=== PATIENT | male | born 1935 | race African-American/Black ===

== ENCOUNTER 2018-10-16 14:51 | Inpatient (IN) | payer MEDICARE, MEDICAID ==
--- NOTE | 2018-10-16 16:26 | ULT ---
EXAM: Right lower extremity venous duplex ultrasound with color and spectral Doppler imaging: HISTORY: Lower extremity edema. COMPARISON: None FINDINGS: Exam performed from the groin to the ankle including the visualized greater saphenous, common femoral , superficial femoral, profunda femoral, popliteal, trifurcation, and very poorly visualized posterior tibial veins. There is phasic flow with normal compressibility and normal augmentation at all visualized levels. No evidence for intraluminal thrombus. Posterior tibial veins and arteries are poorly seen. IMPRESSION:: No evidence for deep venous thrombosis. Incomplete visualization of the posterior tibial veins.
[2018-10-16 17:11] LABS: CKMB 2.1 ng/mL (0-6.6)
[2018-10-16] MEDS ORDERED: Magnesium 2 GM/50 ML BAG (IN WATER) ONE (17:15)
[2018-10-16] MEDS ORDERED: Calcium Carbonate 500 MG ChewTAB PO PRN (17:43)
[2018-10-16] MEDS ORDERED: Ondansetron PF 4 MG/2 ML Vial IVP PRN (17:43)
[2018-10-16] MEDS ORDERED: Ondansetron ODT 4 MG TAB PO PRN (17:43)
[2018-10-16] MEDS ORDERED: Acetaminophen 325 MG TAB PO PRN (17:43)
--- NOTE | 2018-10-16 19:00 | CON ---
DATE OF CONSULTATION: 10/16/2018 REASON FOR CONSULTATION: Atrial fibrillation with RVR. HISTORY OF PRESENT ILLNESS: Mr. Davis is a very pleasant 82-year-old gentleman, who comes to the hospital for altered mentation. called [phone] as he noticed that he was not responding adequately. Upon arrival, he was alert and oriented x2, and he was found to be in atrial fibrillation RVR, so he was started on Cardizem drip, this was in [place]. He was sent over to [facility] and Cardiology is being consulted for this. Mr. Davis has a significant history of cardiomyopathy. He had an EF of about 30% to 35% in 2013. He never had a heart catheterization as he had elevated creatinine at that time, which was in 2013 and he never followed up in the office. The last time I saw him was in 2013 during his admission in May and have not seen him since. On my evaluation, he is still little bit confused. He denies any chest pain, tightness, or pressure. He tells me that his breathing is similar to what it always is, but again I am not sure how confused he may be. Currently, he is able to who he is, but he is unable to tell me year or where he is. PAST MEDICAL HISTORY: 1. Dilated cardiomyopathy, last EF 30% to 35% in 2013. 2. Chronic kidney disease stage 4. 3. Hypertension. 4. Sensorineural deafness. SURGICAL HISTORY: 1. Hernia repair. 2. Cataract in the right eye repair. SOCIAL HISTORY: No alcohol, tobacco, or drugs. OUTPATIENT MEDICATIONS: Reviewed on ; 1. Carvedilol 3.125 b.i.d. 2. Atorvastatin 40 mg at bedtime. 3. Aspirin 325 a day. ALLERGIES: NO KNOWN DRUG ALLERGIES. FAMILY HISTORY: Early coronary artery disease, stroke, and malignancy in family members. REVIEW OF SYSTEMS: A 10-point review of systems was done and was found to be negative unless stated in the history of present illness, however, he is confused and this is not accurate. PHYSICAL EXAMINATION: VITAL SIGNS: Temperature 98.2, pulse 60, respiratory rate 18, saturating 98% on 2 L nasal cannula. GENERAL: Awake, alert, and oriented to person only, in no distress. HEENT: Normocephalic and atraumatic. NECK: Supple. LUNGS: Mild crackles at bases. CARDIOVASCULAR: S1 and S2. No S3 or S4. No murmurs. ABDOMEN: Soft. There is a grade 2/6 systolic murmur at the upper sternal border. ABDOMEN: Soft. Positive bowel sounds. EXTREMITIES: 1+ edema. SKIN: Warm and dry. LABORATORY DATA: Laboratory work was reviewed. CBC with a white count of 5, hemoglobin 12, hematocrit 39, platelet count of 145. Chemistries with sodium 134, potassium 3.7, creatinine 1.94 with GFR of 40, glucose of 111, calcium is low at 7.7, total bilirubin is 1.3. Troponin is 0.05, 0.05. BNP was 318. TSH Telemetry was reviewed. Chest x-ray showed bibasilar opacities suggesting bilateral pulmonary parenchymal opacities and pleural effusions. Pulmonary edema more than infectious pneumonitis. ASSESSMENT AND PLAN: 1. Atrial fibrillation with RVR. Rate controlled on current diltiazem drip. Heart rate in the 60s. 2. Acute on chronic systolic heart failure. Most likely he has a little bit of congestive heart failure exacerbation with his atrial fibrillation. 3. Hypertension. 4. Noncompliance. PLAN: 1. Agree with continued diltiazem drip for now, probably transition to p.o. in the next few days. 2. would be just up titrating his Coreg rather than adding a calcium channel binu. 3. His CHADS-VASc score is 4 with LV dysfunction, hypertension, and age above 75, so he would be a candidate for full anticoagulation, however, at this point I would have to talk with his family member to see if he is not too much of a fall risk, which I think he may be right now, it is prohibitive given his altered mentation. 4. We will repeat echocardiogram to see what his LV function is at this point. Thank you for letting me to participate in the care of your patient. We will follow. Job ID: [id number]
[2018-10-16] MEDS: Senokot S 8.6-50 MG TAB PO SCH (21:00)
[2018-10-16] MEDS: Carvedilol 3.125 MG TAB PO SCH (21:00)
--- NOTE | 2018-10-16 23:02 | HP ---
PRIMARY CARE PHYSICIAN: Adonis Mandel MD CHIEF COMPLAINT: Altered mentation. HISTORY OF PRESENT ILLNESS: The patient is an 82-year-old male with congestive heart failure, ejection fraction 30% in the past, and hypertension, presented to the emergency room by EMS with altered mentation. Please note that the patient is a very poor historian and no information is available from the patient. I attempted to call all the phone numbers on his face sheet with no answer. History obtained from the ER record as well as records from Dr. Mandel's office. The patient had altered mentation; for which, he was sent to the emergency room. It is unclear whether he had significant shortness of breath. He was found to have atrial fibrillation with rapid ventricular response at [facility] and was started on Cardizem drip. His chest x-ray showed pulmonary vascular congestion. He also received aspirin, Lovenox, and IV fluid in the emergency room. Initial vital signs at [facility] show temperature 97.9, respirations 15, pulse of 118 with a blood pressure of 130/92 with O2 saturation of 94% on room air. He was transferred to this facility for hospital admission. Again, no information is available from the patient. PAST MEDICAL HISTORY: 1. Hypertension. 2. Chronic hearing loss. 3. Chronic systolic heart failure, ejection fraction 30% in the past. 4. Dyslipidemia. 5. Dementia. 6. CKD. 7. Chronic hyponatremia. PAST SURGICAL HISTORY: Inguinal hernia repair. ALLERGIES: NO KNOWN DRUG ALLERGIES. CURRENT HOME MEDICATIONS: From his PCP's office: 1. Carvedilol 6.25 mg b.i.d. 2. Aspirin 81 mg daily. SOCIAL HISTORY: The patient is retired. Nonsmoker. It is unclear whether he lives with somebody. We will confirm the code status and DPOA with the family when they arrive. FAMILY HISTORY: Cannot be obtained from the patient due to current cognitive status. REVIEW OF SYSTEMS: Cannot be obtained from the patient due to current cognitive status. PHYSICAL EXAMINATION: VITAL SIGNS: As discussed above. GENERAL: An 82-year-old male, in no apparent distress, on Cardizem drip. HEENT: Head atraumatic and normocephalic. Sclerae anicteric. Moist mucous membrane. No oral lesion. The patient does not have any teeth. NECK: Supple. No JVD appreciated. No carotid bruit. LUNGS: Lung showed diminished air entry at bilateral bases. Lungs were symmetrical. No significant accessory muscle use. Scattered rhonchi, especially at bases. HEART: S1, S2 present. Irregularly irregular. 2/6 systolic murmur over the mitral area. No heaves or pulsation. ABDOMEN: Soft, nontender. Bowel sounds present. EXTREMITIES: Bilateral feet edema, right more than left noted. There is 1+ edema in bilateral calf. Right lower extremity is more swollen than the left. No calf tenderness. NEUROLOGIC AND PSYCHIATRIC: Examination could not be done due to current cognitive status. SKIN: Warm and dry. LYMPH NODES: No palpable lymph nodes in the neck. LABORATORY FINDINGS: CBC showed WBC 5.4, hemoglobin 12.7, hematocrit 39.6, platelet of 145. Chemistry showed sodium 134, potassium 3.7, chloride 98, bicarb 21, BUN 23, creatinine 1.96. His baseline creatinine is 1.3 to 1.4. TSH was 70.3 with free T4 of 0.76. BNP was 318. Albumin 2.5 with total protein of 5.9. IMAGING STUDIES: Chest x-ray by my review showed pulmonary vascular congestion. Right lower extremity Doppler was negative for DVT. EKG by my review showed atrial fibrillation with rapid ventricular response. IMPRESSION: 1. Atrial fibrillation with rapid ventricular response. 2. Acute on chronic systolic heart failure, ACC stage C. 3. Hypertension. 4. Dementia. 5. Chronic hearing loss. 6. Acute kidney injury on chronic kidney disease, stage 3. 7. Moderate protein-calorie malnutrition. 8. Abnormal LFTs secondary to passive hepatic congestion. 9. Type 2 myocardial infarction. 10. Elevated TSH with normal free T4. 11. Metabolic acidosis. 12. History of dyslipidemia. His recent LDL was 84 with cholesterol 162, triglycerides 70 with HDL of 64. 13. Physical deconditioning. PLAN: The patient will be monitored in the telemetry unit. Repeat echocardiogram will be obtained. We will continue Bruce yung. Cardiovascular team consultation. IV diuretics. Fluid restriction. We will recheck labs on a daily basis. Start carvedilol at low dose. We will continue 1 mg/kg of Lovenox once a day. Palliative care team consultation. We will discuss the plan of care with the family when they arrive. He is probably at high risk of fall. We will confirm with the family prior to starting long-term anticoagulation. We will continue Bruce yung for now. Job ID: [id number]
[2018-10-17] MEDS: Furosemide 20 MG/2 ML VIAL SLOW IVP SCH ×2 (05:50→15:30)
[2018-10-17 07:20] LABS: Hemoglobin 10.1 g/dL (14.0-18.0); Mean Corpuscular HGB CONC 32.6 g/dL (32.0-36.0); Mean Corpuscular Hemoglobin 31.8 pg (27.0-31.0); Mean Corpuscular Volume 97.5 fL (78.0-98.0); Mean Platelet Volume 11.5 fL (7.4-10.4); Platelet Count 112 thou/uL (130-400); RBC Distribution Width 18.9 % (11.5-14.5); Red Blood Cell (RBC) Count 3.17 mill/uL (4.70-6.10); White Blood Cell (WBC) Count 5.4 thou/uL (4.8-10.8)
[2018-10-17 07:34] LABS: ALT (SGPT) 7 U/L (8-55); AST (SGOT) 20 U/L (5-34); Albumin 1.9 g/dL (3.4-4.8); Alkaline Phosphatase 58 U/L (40-150); Anion Gap 14 mmol/L (10-20); BUN (Urea Nitrogen) 26 mg/dL (8.4-25.7); Bilirubin, Total 0.9 mg/dL (0.2-1.2); Calc. Creatinine Clearance 24 mL/min (70-130); Calcium 7.2 mg/dL (7.8-10.44); Carbon Dioxide 24 mmol/L (23-31); Chloride 98 mmol/L (98-107); Estimated GFR-MDRD 32; Globulin 2.8 g/dL (2.4-3.5); Glucose 101 mg/dL (83-110); Potassium 4.3 mmol/L (3.5-5.1); Protein, Total 4.7 g/dL (5.8-8.1); Sodium 132 mmol/L (136-145)
[2018-10-17 08:20] LABS: Band 5 % (5-11); Lymphocytes 30 % (21-51); MDiff Complete? YES; Monocytes 8 % (0-10); Neutrophil 57 % (42-75); Platelet Morphology Comment Appears Decreased; Polychromasia SLIGHT = 2-3 cells (100X) (0-2/hpf); Schistocytes SLIGHT = 2-5 cells (100X) (0-1/hpf); Target Cells SLIGHT = 2-5 cells (100X) (0-1/hpf)
[2018-10-17] MEDS ORDERED: Magnesium Sulfate 4 GM in Sodium Chloride 0.9% 250 ML 250 ML IVPB SCH ×2 (08:45→15:00)
[2018-10-17] MEDS: Senokot S 8.6-50 MG TAB PO SCH ×2 (09:00→21:42)
[2018-10-17] MEDS ORDERED: Prevnar 13-Val Conj/PF 0.5 ML SYRINGE IM ONE (09:00)
[2018-10-17] MEDS: Enoxaparin Sodium 60 MG/0.6 ML SYRINGE SC SCH (09:00)
[2018-10-17] MEDS: Folic Acid 1 MG TAB PO SCH (09:00)
[2018-10-17] MEDS: Carvedilol 3.125 MG TAB PO SCH ×2 (09:00→21:43)
[2018-10-17] MEDS: Multivit, Therapeutic 1 TAB PO SCH (09:00)
[2018-10-17] MEDS: Cyanocobalamin (Vitamin B-12) 1,000 MCG TAB PO SCH (09:00)
[2018-10-17] MEDS: Aspirin 81 mg Enteric Coated Tablet PO SCH (09:00)
[2018-10-17] MEDS ORDERED: Enoxaparin Sodium 30 MG/0.3 ML SYRINGE SC SCH (09:00)
[2018-10-17 09:48] LABS: Phosphorus 4.3 mg/dL (2.3-4.7)
--- NOTE | 2018-10-17 16:23 | PDOC.CTH ---
Cardiology Progress Note - Subjective He remains confused. Earlier today he was not too pleasant but much better now. He denies any angina. He refused his echo this morning. - Objective Vital Signs Temp Pulse Resp BP Pulse Ox 10/17/18 13:20 98 10/17/18 13:18 97.7 F 75 20 126/78 98 Weight 156 lb 3.2 oz - Physical Examination General/Neuro: NAD Neck: no JVD present Lungs: unlabored respirations Heart: other: (Irreg Irreg) Abdomen: NT/ND Extremities: other: (no edema) - Telemetry Telemetry Rhythm: Afib HR 80's. - Labs Result Diagrams: 10/17/18 06:49 10/17/18 06:49 Troponin/CKMB CK-MB (CK-2) 2.1 ng/mL (0-6.6) 10/16/18 16:05 Troponin I 0.055 ng/mL (< 0.028) H 10/16/18 16:05 - Assessment/Plan 1. Afib RVR, rate controlled now. 2. Dilated Cm Last EF in 2013 at 30-35% 3. AMS 4. Likely dementia exacerbated by acute illness. 5. CKD stage 4 PLAN: - Would stop diltiazem drip and would increase coreg to 6.25 mg BID. - He is better rate controlled when he is calm and HR gets high when he is agitated. - Prohibitive to do LHC given his elevated creatinine and altered mentation. - Echo pending. - Medical therapy for now. - No ACEI due to renal dysfunction. - If BP allows before discharge may benefit from BiDil.
--- NOTE | 2018-10-17 22:38 | PDOC.PN ---
- Subjective Encounter Start Date: 10/17/18 Encounter Start Time: 13:00 Patient seen and examined for CHF/Afib with RVR. Refused echo. More calm now. No new complaints. No overnight events - Objective MAR Reviewed: Yes Vital Signs & Weight: Vital Signs (12 hours) Temp Pulse Pulse Pulse Resp BP BP 10/17/18 17:25 106 H 122 H 121/92 H 112/73 10/17/18 13:20 10/17/18 13:18 97.7 F 75 20 BP Pulse Ox 10/17/18 17:25 10/17/18 13:20 98 10/17/18 13:18 126/78 98 Weight Weight 156 lb 3.2 oz Result Diagrams: 10/17/18 06:49 10/17/18 06:49 EKG Reviewed by me: Yes (Tele Afib) Phys Exam - Physical Examination Constitutional: NAD Neck: no JVD Respiratory: no wheezing, no rhonchi Bibasila rales, Symmetrical Cardiovascular: no rub, irregular no heaves/pulsations Gastrointestinal: soft, non-tender, no distention, positive bowel sounds Musculoskeletal: pulses present, edema present Neurological: moves all 4 limbs Psychiatric: normal affect Deviation from normal: Intermittent confusion. Detailed exam cannot be done due to current ment. Dx/Plan - Plan plan discussed w/ family, PT/OT, social work supervisor, DVT proph w/lovenox, DVT proph w/SCDs IMPRESSION: 1. Atrial fibrillation with rapid ventricular response. 2. Acute on chronic systolic heart failure, ACC stage C. No ACEI/ARB/Aldactone due to renal insufficiency. 3. Hypertension. 4. Dementia. 5. Hypomagnesemia 6. Acute kidney injury on chronic kidney disease, stage 3. 7. Moderate protein-calorie malnutrition. 8. Abnormal LFTs secondary to passive hepatic congestion. 9. Type 2 myocardial infarction. 10. Elevated TSH with normal free T4. Subclinical hypothyroidism 11. Metabolic acidosis. 12. Dyslipidemia/Physical deconditioning/Chronic hearing loss. PLAN: Replace Magnessium DC Cardizem drip Cont Lovenox for afib Family to decide on joint terminal attack controller anticoag AM labs Coreg dose increased. Cont other meds as below Full code per grand daughter. Patient makes his own decisions with the help of his family. Laboratory Tests 10/17/18 06:49 Magnesium 1.0 L Review of Systems - Review of Systems Respiratory: negative: Cough, Dry, Shortness of Breath, Hemoptysis, SOB with Excertion, Pleuritic Pain, Sputum, Wheezing Cardiovascular: negative: chest pain, palpitations, orthopnea, paroxysmal nocturnal dyspnea, edema, light headedness, other Gastrointestinal: negative: Nausea, Vomiting, Abdominal Pain, Diarrhea, Constipation, Melena, Hematochezia, Other - Medications/Allergies Allergies/Adverse Reactions: Allergies Allergy/AdvReac Type Severity Reaction Status Date / Time No Known Allergies Allergy Verified 10/16/18 22:24 Medications: Current Medications Acetaminophen (Tylenol) 650 mg PO Q4H PRN PRN Reason: Headache/Fever/Mild Pain (1-3) Aspirin (Ecotrin) 81 mg PO DAILY [facility] Last Admin: 10/17/18 09:00 Dose: Not Given Calcium Carbonate (Tums) 1,000 mg PO Q4H PRN PRN Reason: Heartburn or Indigestion Carvedilol (Coreg) 6.25 mg PO BID [facility] Last Admin: 10/17/18 21:43 Dose: 6.25 mg Cyanocobalamin (Vitamin B-12) 1,000 mcg PO DAILY [facility] Last Admin: 10/17/18 09:00 Dose: Not Given Enoxaparin Sodium (Lovenox) 60 mg SC 0900 [facility] Last Admin: 10/17/18 09:00 Dose: Not Given Folic Acid (Folvite) 1 mg PO DAILY [facility] Last Admin: 10/17/18 09:00 Dose: Not Given Furosemide (Lasix) 20 mg SLOW IVP 0600,1400 [facility] Last Admin: 10/17/18 15:30 Dose: 20 mg Multivitamins (Theragran) 1 tab PO DAILY [facility] Last Admin: 10/17/18 09:00 Dose: Not Given Ondansetron HCl (Zofran Odt) 4 mg PO Q6H PRN PRN Reason: Nausea/Vomiting Ondansetron HCl (Zofran) 4 mg IVP Q6H PRN PRN Reason: Nausea/Vomiting Senna/Docusate Sodium (Senokot S) 2 tab PO BID [facility] Last Admin: 10/17/18 21:42 Dose: 2 tab Sodium Chloride (Flush - Normal Saline) 10 ml IVF PRN PRN PRN Reason: Saline Flush Last Admin: 10/17/18 21:43 Dose: 10 ml
[2018-10-18] MEDS: Furosemide 20 MG/2 ML VIAL SLOW IVP SCH (05:00)
[2018-10-18 08:11] LABS: Phosphorus 4.4 mg/dL (2.3-4.7)
[2018-10-18 08:15] LABS: ALT (SGPT) Less than 7 U/L (8-55); AST (SGOT) 20 U/L (5-34); Albumin 1.9 g/dL (3.4-4.8); Alkaline Phosphatase 62 U/L (40-150); Anion Gap 16 mmol/L (10-20); BUN (Urea Nitrogen) 27 mg/dL (8.4-25.7); Bilirubin, Total 0.7 mg/dL (0.2-1.2); Calc. Creatinine Clearance 26 mL/min (70-130); Calcium 7.4 mg/dL (7.8-10.44); Carbon Dioxide 22 mmol/L (23-31); Chloride 100 mmol/L (98-107); Estimated GFR-MDRD 35; Glucose 111 mg/dL (83-110); Magnesium 1.4 mg/dL (1.6-2.6); Potassium 4.1 mmol/L (3.5-5.1); Protein, Total 4.9 g/dL (5.8-8.1); Sodium 134 mmol/L (136-145)
[2018-10-18 08:42] LABS: Hemoglobin 11.6 g/dL (14.0-18.0); Mean Corpuscular HGB CONC 32.6 g/dL (32.0-36.0); Mean Corpuscular Hemoglobin 31.6 pg (27.0-31.0); Mean Corpuscular Volume 96.7 fL (78.0-98.0); Platelet Count 124 thou/uL (130-400); RBC Distribution Width 18.8 % (11.5-14.5); Red Blood Cell (RBC) Count 3.66 mill/uL (4.70-6.10)
[2018-10-18] MEDS ORDERED: Magnesium Sulfate 4 GM in Sodium Chloride 0.9% 250 ML 250 ML IVPB SCH (08:45)
[2018-10-18] MEDS: Aspirin 81 mg Enteric Coated Tablet PO SCH (08:49)
[2018-10-18] MEDS: Cyanocobalamin (Vitamin B-12) 1,000 MCG TAB PO SCH (08:49)
[2018-10-18] MEDS: Carvedilol 3.125 MG TAB PO SCH ×2 (08:49→17:39)
[2018-10-18] MEDS: Folic Acid 1 MG TAB PO SCH (08:50)
[2018-10-18] MEDS: Enoxaparin Sodium 60 MG/0.6 ML SYRINGE SC SCH (08:50)
[2018-10-18] MEDS: Multivit, Therapeutic 1 TAB PO SCH (08:50)
[2018-10-18] MEDS: Senokot S 8.6-50 MG TAB PO SCH ×2 (08:50→20:54)
[2018-10-18 09:33] LABS: Burr Cells MARKED = >16 cells (100X) (0-1/hpf); Hypochromia SLIGHT = 6-15 cells (100X) (0-5/hpf); Lymphocytes 18 % (21-51); MDiff Complete? YES; Mean Platelet Volume 12.1 fL (7.4-10.4); Monocytes 10 % (0-10); Neutrophil 72 % (42-75); Platelet Morphology Comment Appears Decreased; Schistocytes SLIGHT = 2-5 cells (100X) (0-1/hpf); Target Cells SLIGHT = 2-5 cells (100X) (0-1/hpf); White Blood Cell (WBC) Count 6.3 thou/uL (4.8-10.8)
--- NOTE | 2018-10-18 12:16 | PDOC.PN ---
- Subjective Encounter Start Date: 10/18/18 Encounter Start Time: 12:14 Patient seen and examined for Afib/SOB. Waylon noe was called for syncopal episode cliff working with PT. Bradycardia on tele monitor with hypotension. Somnolent. No overnight events - Objective MAR Reviewed: Yes Vital Signs & Weight: Vital Signs (12 hours) Temp Pulse Resp BP Pulse Ox 10/18/18 08:05 100 10/18/18 08:00 98.2 F 96 18 125/84 100 10/18/18 04:00 97.6 F 83 16 123/83 100 Weight Weight 159 lb 4.8 oz I&O: 10/17/18 10/18/18 10/19/18 06:59 06:59 06:59 Intake Total 240 Balance 240 Result Diagrams: 10/18/18 07:17 10/18/18 07:17 EKG Reviewed by me: Yes (Tele Afib) Phys Exam - Physical Examination Somnolent. Opens eyes to verbal commands Respiratory: no wheezing, no rhonchi few rales at bases, Symmetricak Cardiovascular: no rub, irregular no heaves/pulsations Gastrointestinal: soft, non-tender, no distention, positive bowel sounds Musculoskeletal: pulses present, edema present Neuro/Psych - Cannot assess due to current mentation Dx/Plan - Plan DVT proph w/lovenox, DVT proph w/SCDs IMPRESSION: s/p Code Green/Syncope Atrial fibrillation with rapid ventricular response. - rate controlled. Acute on chronic systolic heart failure, ACC stage C. No ACEI/ARB/Aldactone due to renal insufficiency. Hypertension. Dementia. Hypomagnesemia 1.4 today Acute kidney injury on chronic kidney disease, stage 3. Moderate protein-calorie malnutrition. Abnormal LFTs secondary to passive hepatic congestion. Type 2 myocardial infarction. Elevated TSH with normal free T4. Subclinical hypothyroidism Metabolic acidosis. Dyslipidemia/Physical deconditioning/Chronic hearing loss. PLAN: STAT EKG,XR chest, Serial troponin CT brain due to anticoag IV fluid bolus for hypotension Hold Coreg Echo pending Replace Magnessium Cont Lovenox for afib AM labs Cont other meds as below Case d/w grand daughter. Review of Systems - Review of Systems Other: Cannot obtain due to current mentation - Medications/Allergies Allergies/Adverse Reactions: Allergies Allergy/AdvReac Type Severity Reaction Status Date / Time No Known Allergies Allergy Verified 10/16/18 22:24 Medications: Current Medications Acetaminophen (Tylenol) 650 mg PO Q4H PRN PRN Reason: Headache/Fever/Mild Pain (1-3) Aspirin (Ecotrin) 81 mg PO DAILY [facility] Last Admin: 10/18/18 08:49 Dose: 81 mg Calcium Carbonate (Tums) 1,000 mg PO Q4H PRN PRN Reason: Heartburn or Indigestion Carvedilol (Coreg) 6.25 mg PO BID [facility] Last Admin: 10/18/18 08:49 Dose: 6.25 mg Cyanocobalamin (Vitamin B-12) 1,000 mcg PO DAILY [facility] Last Admin: 10/18/18 08:49 Dose: 1,000 mcg Enoxaparin Sodium (Lovenox) 60 mg SC 0900 [facility] Last Admin: 10/18/18 08:50 Dose: 60 mg Folic Acid (Folvite) 1 mg PO DAILY [facility] Last Admin: 10/18/18 08:50 Dose: 1 mg Furosemide (Lasix) 20 mg SLOW IVP 0600,1400 [facility] Last Admin: 10/18/18 05:00 Dose: 20 mg Levothyroxine Sodium (Synthroid) 25 mcg PO 0600 [facility] Multivitamins (Theragran) 1 tab PO DAILY [facility] Last Admin: 10/18/18 08:50 Dose: 1 tab Ondansetron HCl (Zofran Odt) 4 mg PO Q6H PRN PRN Reason: Nausea/Vomiting Ondansetron HCl (Zofran) 4 mg IVP Q6H PRN PRN Reason: Nausea/Vomiting Senna/Docusate Sodium (Senokot S) 2 tab PO BID [facility] Last Admin: 10/18/18 08:50 Dose: 2 tab Sodium Chloride (Flush - Normal Saline) 10 ml IVF PRN PRN PRN Reason: Saline Flush Last Admin: 10/18/18 05:00 Dose: 10 ml
--- NOTE | 2018-10-18 12:37 | RAD ---
EXAM: XR Chest 1 View Portable PROVIDED CLINICAL HISTORY: Code Green COMPARISON: 10/16/2018 FINDINGS: Cardiac and mediastinal silhouette is unchanged in appearance. Vascular calcification involves the ao rtic arch. Bibasilar pleural-parenchymal opacities are redemonstrated, appearing similar to prior. No evidence for pneumothorax. IMPRESSION: Stable radiographic appearance of chest.
--- NOTE | 2018-10-18 13:02 | CT ---
Exam: CT brain PROVIDED CLINICAL HISTORY: Syncope COMPARISON: 05/19/2014 FINDINGS: The ventricular system is normal in size and morphology. No evidence for intracranial hemorrhage or mass effect. The extracranial soft tissues and osseous structures demonstrate an unremarkable CT appearance. Chronic microvascular white matter ischemic changes are redemonstrated. IMPRESSION: No evidence for intracranial hemorrhage or mass effect.
[2018-10-18 14:00] LABS: CKMB 2.5 ng/mL (0-6.6)
[2018-10-18] MEDS ORDERED: Atropine Sulfate 1 mg/1 ml Vial IVP PRN (15:04)
--- NOTE | 2018-10-18 15:43 | PDOC.EVN ---
Event Note - Event Note Event Note: ACP note: ACP discussed with patients family(son and daughters) including the granddaughter. Family decided on DNR at discharge. Chem code during the hospital stay. Echo pending. They also decided on Warfarin for jail anticoag. Diagnosis - Advanced CHF/Afib Time spent 17 minutes
[2018-10-18 16:17] LABS: Hemoglobin 13.1 g/dL (14.0-18.0)
[2018-10-18 16:22] LABS: INR-International Normal Ratio 1.3
[2018-10-18 16:23] LABS: PTT 36.6 SEC (22.9-36.1)
[2018-10-18 17:00] LABS: CKMB 2.7 ng/mL (0-6.6)
[2018-10-18] MEDS: Warfarin Sodium 5 MG TAB PO SCH (18:33)
[2018-10-19] MEDS: Levothyroxine Sodium 25 MCG TAB PO SCH (05:22)
[2018-10-19 05:46] LABS: Hemoglobin 11.9 g/dL (14.0-18.0)
[2018-10-19 05:49] LABS: INR-International Normal Ratio 1.2; Prothrombin Time 15.4 SEC (12.0-14.7)
[2018-10-19 06:08] LABS: ALT (SGPT) 8 U/L (8-55); AST (SGOT) 21 U/L (5-34); Albumin 2.1 g/dL (3.4-4.8); Alkaline Phosphatase 63 U/L (40-150); Anion Gap 16 mmol/L (10-20); BUN (Urea Nitrogen) 30 mg/dL (8.4-25.7); Bilirubin, Total 0.7 mg/dL (0.2-1.2); Calc. Creatinine Clearance 24 mL/min (70-130); Calcium 7.7 mg/dL (7.8-10.44); Carbon Dioxide 24 mmol/L (23-31); Chloride 98 mmol/L (98-107); Estimated GFR-MDRD 32; Globulin 3.1 g/dL (2.4-3.5); Glucose 109 mg/dL (83-110); Magnesium 1.6 mg/dL (1.6-2.6); Potassium 3.9 mmol/L (3.5-5.1); Protein, Total 5.2 g/dL (5.8-8.1); Sodium 134 mmol/L (136-145)
[2018-10-19] MEDS: Carvedilol 3.125 MG TAB PO SCH ×2 (07:41→17:26)
[2018-10-19] MEDS: Furosemide 40 MG TAB PO SCH (07:41)
[2018-10-19] MEDS ORDERED: Magnesium Sulfate 2 GM in Sodium Chloride 0.9% 100 ML IVPB SCH (08:30)
[2018-10-19] MEDS ORDERED: Magnesium 2 GM/50 ML 2 GM in Premix Bag 1 BAG IVPB SCH (08:45)
[2018-10-19] MEDS: Cyanocobalamin (Vitamin B-12) 1,000 MCG TAB PO SCH (09:22)
[2018-10-19] MEDS: Aspirin 81 mg Enteric Coated Tablet PO SCH (09:22)
[2018-10-19] MEDS: Senokot S 8.6-50 MG TAB PO SCH ×2 (09:22→21:58)
[2018-10-19] MEDS: Multivit, Therapeutic 1 TAB PO SCH (09:22)
[2018-10-19] MEDS: Folic Acid 1 MG TAB PO SCH (09:22)
[2018-10-19] MEDS: Enoxaparin Sodium 60 MG/0.6 ML SYRINGE SC SCH (09:23)
[2018-10-19] MEDS ORDERED: Albumin 25% 25 GM/100 ML BOT IVPB SCH (10:30)
[2018-10-19] MEDS: Warfarin Sodium 5 MG TAB PO SCH (17:24)
--- NOTE | 2018-10-19 22:05 | PDOC.PN ---
- Subjective Encounter Start Date: 10/19/18 Encounter Start Time: 10:45 Patient seen and examined for CHF/Afib. No new complaints. No overnight events - Objective Resuscitation Status - Order Detail: 10/18/18 15:02 Resuscitation Status Routine Resuscitation Status: PRTL: Chem only Discussed with: d/w family at bedside MAR Reviewed: Yes Vital Signs & Weight: Vital Signs (12 hours) Temp Pulse Ox 10/19/18 20:00 100 10/19/18 19:18 97.8 F 10/19/18 15:17 97.1 F L 10/19/18 10:50 97.1 F L Weight Weight 160 lb Most Recent Monitor Data Heart Rate from ECG 74 NIBP 90/59 NIBP BP-Mean 69 Respiration from ECG 15 SpO2 97 I&O: 10/18/18 10/19/18 10/20/18 06:59 06:59 06:59 Intake Total 240 150 580 Balance 240 150 580 Result Diagrams: 10/19/18 05:11 10/19/18 05:11 EKG Reviewed by me: Yes (Tele Afib) Phys Exam - Physical Examination Constitutional: NAD Respiratory: no wheezing, no rhonchi Cardiovascular: no rub, irregular Gastrointestinal: soft, non-tender, positive bowel sounds Musculoskeletal: edema present Dx/Plan - Plan DVT proph w/lovenox, DVT proph w/SCDs IMPRESSION: Atrial fibrillation with rapid ventricular response. - rate controlled. Acute on chronic systolic/diastolic heart failure, ACC stage C. No ACEI/ARB/ Aldactone due to renal insufficiency. s/p Code Green/Syncope Hypertension. Dementia. Hypomagnesemia Acute kidney injury on chronic kidney disease, stage 3. Moderate protein-calorie malnutrition. Abnormal LFTs secondary to passive hepatic congestion. Type 2 myocardial infarction. Elevated TSH with normal free T4. (Subclinical hypothyroidism) Metabolic acidosis. Dyslipidemia/Physical deconditioning/Chronic hearing loss. PLAN: Replace Magnessium Cont Lovenox/Warfarin for afib Cont Lasix/Coreg if BP permits AM labs Cont other meds as below Review of Systems - Review of Systems Cardiovascular: edema. negative: chest pain, palpitations, orthopnea, paroxysmal nocturnal dyspnea, light headedness, other Gastrointestinal: negative: Nausea, Vomiting, Abdominal Pain, Diarrhea, Constipation, Melena, Hematochezia, Other - Medications/Allergies Allergies/Adverse Reactions: Allergies Allergy/AdvReac Type Severity Reaction Status Date / Time No Known Allergies Allergy Verified 10/16/18 22:24 Medications: Current Medications Acetaminophen (Tylenol) 650 mg PO Q4H PRN PRN Reason: Headache/Fever/Mild Pain (1-3) Aspirin (Ecotrin) 81 mg PO DAILY [facility] Last Admin: 10/19/18 09:22 Dose: 81 mg Atropine Sulfate (Atropine) 0.5 mg IVP ASDIR PRN PRN Reason: Sustained Bradycardia HR < 30s Calcium Carbonate (Tums) 1,000 mg PO Q4H PRN PRN Reason: Heartburn or Indigestion Carvedilol (Coreg) 3.125 mg PO BID-[facility] Last Admin: 10/19/18 17:26 Dose: Not Given Cyanocobalamin (Vitamin B-12) 1,000 mcg PO DAILY [facility] Last Admin: 10/19/18 09:22 Dose: 1,000 mcg Enoxaparin Sodium (Lovenox) 60 mg SC DAILY [facility] Last Admin: 10/19/18 09:23 Dose: 60 mg Folic Acid (Folvite) 1 mg PO DAILY [facility] Last Admin: 10/19/18 09:22 Dose: 1 mg Furosemide (Lasix) 40 mg PO DAILY-AC [facility] Last Admin: 10/19/18 07:41 Dose: Not Given Levothyroxine Sodium (Synthroid) 25 mcg PO 0600 [facility] Last Admin: 10/19/18 05:22 Dose: 25 mcg Miscellaneous Medication (Pharmacy To Dose) 1 each PO .WARFARIN [facility] Ondansetron HCl (Zofran Odt) 4 mg PO Q6H PRN PRN Reason: Nausea/Vomiting Ondansetron HCl (Zofran) 4 mg IVP Q6H PRN PRN Reason: Nausea/Vomiting Senna/Docusate Sodium (Senokot S) 1 tab PO BID [facility] Last Admin: 10/19/18 21:58 Dose: 1 tab Sodium Chloride (Flush - Normal Saline) 10 ml IVF PRN PRN PRN Reason: Saline Flush Last Admin: 10/18/18 05:00 Dose: 10 ml Warfarin Sodium (Coumadin) 5 mg PO 1700 [facility] Last Admin: 10/19/18 17:24 Dose: 5 mg
[2018-10-20 05:17] LABS: Hemoglobin 10.3 g/dL (14.0-18.0); Platelet Count 124 thou/uL (130-400)
[2018-10-20 05:20] LABS: INR-International Normal Ratio 1.5; Prothrombin Time 17.7 SEC (12.0-14.7)
[2018-10-20 05:38] LABS: Anion Gap 18 mmol/L (10-20); BUN (Urea Nitrogen) 33 mg/dL (8.4-25.7); Calc. Creatinine Clearance 21 mL/min (70-130); Calcium 7.8 mg/dL (7.8-10.44); Carbon Dioxide 18 mmol/L (23-31); Chloride 100 mmol/L (98-107); Estimated GFR-MDRD 27; Glucose 110 mg/dL (83-110); Sodium 132 mmol/L (136-145)
[2018-10-20] MEDS: Levothyroxine Sodium 25 MCG TAB PO SCH (06:09)
--- NOTE | 2018-10-20 07:16 | CON ---
DATE OF CONSULTATION: HISTORY OF PRESENT ILLNESS: An 82-year-old male, who was admitted on 10/16 with atrial fibrillation, RVR from [place]. He was on the telemetry unit when became unresponsive and hypotensive, was transferred to the MICU, reason for consult. The patient is deaf. The patient appears to be demented. It is unable to get any history, but this morning, his systolic blood pressure is 70. Diuretics have been withheld, including his blood pressure medicine. An echocardiogram done on admission shows an EF of 40% and his chest x-ray shows what looks like small bilateral pleural effusion. Not coughing. Not wheezing. Appears to have no chest pain. PAST MEDICAL HISTORY: Hypertension, clinically deaf, probably demented. Get information from family as they arrive. PAST SURGICAL HISTORY: Abdominal hernia operation. He has been in and out of the hospital here. Recently, cataract surgery. SOCIAL HISTORY: Alcohol, none. Tobacco, none. REVIEW OF SYSTEMS: Otherwise almost impossible to obtain. PHYSICAL EXAMINATION: VITAL SIGNS: His sats are 97%, pulse is 80, blood pressure is 88/60, and respiratory rate 20. CHEST: Decreased breath sounds. No wheezing. CARDIAC: Normal S1 and S2. No gallops. ABDOMEN: No masses. NEUROLOGIC: He moves all four extremities, but he is deaf. LABORATORY DATA: His lytes; creatinine is 2.39, slightly elevated from baseline of 1.36, suggesting maybe prerenal. His albumin is low at 2.1. Hemoglobin and hematocrit 11 and 36. INR is 1.2. CT brain was otherwise unremarkable. Chest x-ray yesterday shows bibasilar pleural changes, possibly infiltrate versus pleural effusion. IMPRESSION: Respiratory failure, congestive heart failure, possibly pneumonia, atrial fibrillation, advanced age, deaf, probably dementia. PLAN: I agree with holding his diuretics. For blood pressure, I am going to give him small fluid bolus. Pulmonary Critical Care will follow on the MICU. Consultation note, 70 minutes, 50% direct patient care. Job ID: [id number]
[2018-10-20] MEDS: Carvedilol 3.125 MG TAB PO SCH ×2 (09:18→17:12)
[2018-10-20] MEDS: Folic Acid 1 MG TAB PO SCH (09:18)
[2018-10-20] MEDS: Aspirin 81 mg Enteric Coated Tablet PO SCH (09:18)
[2018-10-20] MEDS: Enoxaparin Sodium 60 MG/0.6 ML SYRINGE SC SCH (09:18)
[2018-10-20] MEDS: Furosemide 40 MG TAB PO SCH (09:18)
[2018-10-20] MEDS: Senokot S 8.6-50 MG TAB PO SCH ×2 (09:19→20:51)
[2018-10-20] MEDS: Cyanocobalamin (Vitamin B-12) 1,000 MCG TAB PO SCH (09:28)
--- NOTE | 2018-10-20 10:15 | PRG ---
DATE OF SERVICE: 10/20/2018 SUBJECTIVE: This morning, awake, alert, and responsive, still encephalopathic. OBJECTIVE: VITAL SIGNS: Saturations are 100% on room air, temperature 98, blood pressure 102/59, respiratory rate 18. CHEST: No wheezing. CARDIAC: Normal S1 and S2. No gallops. ABDOMEN: No masses. LABORATORY DATA: Creatinine 2.72. IMPRESSION: 1. Respiratory failure. 2. Congestive heart failure. 3. Advanced age. 4. Deaf. 5. Dementia. PLAN: Continue present cardiac care. He can probably transfer out to a non-monitored bed. We will follow. Job ID: [id number]
--- NOTE | 2018-10-20 12:00 | PDOC.CTH ---
Cardiology Progress Note - Subjective He is doing better. Pleasant today, mildly confused only. - Objective Vital Signs Temp Pulse Ox 10/20/18 11:13 98.1 F 10/20/18 08:03 100 10/20/18 07:15 98.0 F 10/20/18 03:00 97.7 F Weight 163 lb 3.2 oz 10/19/18 10/20/18 10/21/18 06:59 06:59 06:59 Intake Total 150 730 Balance 150 730 - Physical Examination General/Neuro: NAD Neck: no JVD present Lungs: unlabored respirations Heart: other: (Irreg) Abdomen: NT/ND Extremities: other: (no edema) - Telemetry Telemetry Rhythm: Afib HR 80's. - Labs Result Diagrams: 10/20/18 04:42 10/20/18 04:42 Troponin/CKMB CK-MB (CK-2) 2.7 ng/mL (0-6.6) 10/18/18 15:59 Troponin I 0.061 ng/mL (< 0.028) H 10/18/18 15:59 - Assessment/Plan 1. Afib RVR, rate controlled. 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 AMS 4. Likely dementia exacerbated by acute illness. Improved. 5. CKD stage 4 PLAN: - Increase Coreg to 6.25 mg BID to improve rate control. - Prohibitive to do [facility] given his elevated creatinine and altered mentation. - Medical therapy for now. - No ACEI due to renal dysfunction. - BP borderline for BiDil for now.
--- NOTE | 2018-10-20 14:17 | PDOC.PN ---
- Subjective Encounter Start Date: 10/20/18 Encounter Start Time: 13:30 Patient seen and examined for CHF/Afib. No CP/SOB. Feels better. No new complaints. No overnight events - Objective Resuscitation Status - Order Detail: 10/18/18 15:02 Resuscitation Status Routine Resuscitation Status: PRTL: Chem only Discussed with: d/w family at bedside MAR Reviewed: Yes Vital Signs & Weight: Vital Signs (12 hours) Temp Pulse Pulse Pulse Pulse BP BP 10/20/18 11:13 98.1 F 10/20/18 10:46 105 H 84 142 H 93 122/79 130/76 10/20/18 08:03 10/20/18 07:15 98.0 F 10/20/18 03:00 97.7 F BP Pulse Ox 10/20/18 11:13 10/20/18 10:46 129/93 H 10/20/18 08:03 100 10/20/18 07:15 10/20/18 03:00 Weight Weight 163 lb 3.2 oz Most Recent Monitor Data Heart Rate from ECG 87 NIBP 107/68 NIBP BP-Mean 81 Respiration from ECG 17 SpO2 97 I&O: 10/19/18 10/20/18 10/21/18 06:59 06:59 06:59 Intake Total 150 730 Balance 150 730 Result Diagrams: 10/20/18 04:42 10/20/18 04:42 EKG Reviewed by me: Yes (Tele Afib) Phys Exam - Physical Examination Constitutional: NAD Respiratory: no wheezing, no rhonchi Cardiovascular: no rub, irregular Gastrointestinal: soft, non-tender, positive bowel sounds Musculoskeletal: edema present Neurological: moves all 4 limbs Dx/Plan - Plan DVT proph w/lovenox, DVT proph w/SCDs IMPRESSION: Atrial fibrillation with rapid ventricular response. - rate controlled. Off Cardizem drip Acute on chronic systolic/diastolic heart failure, ACC stage C. s/p Code Green/Syncope - No new episodes Hypertension - BP in lower range. Dementia. Hypomagnesemia - replaced Acute kidney injury on chronic kidney disease, stage 3. Moderate protein-calorie malnutrition. Abnormal LFTs secondary to passive hepatic congestion. Type 2 myocardial infarction. Elevated TSH with normal free T4. (Subclinical hypothyroidism) - Started on low dose Levothyroxine Metabolic acidosis. Dyslipidemia/Physical deconditioning/Chronic hearing loss. PLAN: Replace Magnessium Cont Lovenox/Warfarin for afib - INR 1.5 today Cont Lasix/Coreg No ACEI/ARB/Aldactone due to renal insufficiency. Cont other meds as below AM labs SNF Eval Review of Systems - Review of Systems Respiratory: negative: Cough, Dry, Shortness of Breath, Hemoptysis, SOB with Excertion, Pleuritic Pain, Sputum, Wheezing Cardiovascular: negative: chest pain, palpitations, orthopnea, paroxysmal nocturnal dyspnea, edema, light headedness, other - Medications/Allergies Allergies/Adverse Reactions: Allergies Allergy/AdvReac Type Severity Reaction Status Date / Time No Known Allergies Allergy Verified 10/16/18 22:24 Medications: Current Medications Acetaminophen (Tylenol) 650 mg PO Q4H PRN PRN Reason: Headache/Fever/Mild Pain (1-3) Aspirin (Ecotrin) 81 mg PO DAILY [facility] Last Admin: 10/20/18 09:18 Dose: 81 mg Atropine Sulfate (Atropine) 0.5 mg IVP ASDIR PRN PRN Reason: Sustained Bradycardia HR < 30s Calcium Carbonate (Tums) 1,000 mg PO Q4H PRN PRN Reason: Heartburn or Indigestion Carvedilol (Coreg) 6.25 mg PO BID[facility] Cyanocobalamin (Vitamin B-12) 1,000 mcg PO DAILY [facility] Last Admin: 10/20/18 09:28 Dose: 1,000 mcg Enoxaparin Sodium (Lovenox) 60 mg SC DAILY [facility] Last Admin: 10/20/18 09:18 Dose: 60 mg Folic Acid (Folvite) 1 mg PO DAILY [facility] Last Admin: 10/20/18 09:18 Dose: 1 mg Furosemide (Lasix) 40 mg PO DAILY-AC [facility] Last Admin: 10/20/18 09:18 Dose: Not Given Levofloxacin (Levaquin) 500 mg PO 0600 [facility] Stop: 10/26/18 06:01 Levothyroxine Sodium (Synthroid) 25 mcg PO 0600 [facility] Last Admin: 10/20/18 06:09 Dose: 25 mcg Miscellaneous Medication (Pharmacy To Dose) 1 each PO .WARFARIN [facility] Ondansetron HCl (Zofran Odt) 4 mg PO Q6H PRN PRN Reason: Nausea/Vomiting Ondansetron HCl (Zofran) 4 mg IVP Q6H PRN PRN Reason: Nausea/Vomiting Senna/Docusate Sodium (Senokot S) 1 tab PO BID [facility] Last Admin: 10/20/18 09:19 Dose: 1 tab Sodium Chloride (Flush - Normal Saline) 10 ml IVF PRN PRN PRN Reason: Saline Flush Last Admin: 10/18/18 05:00 Dose: 10 ml Warfarin Sodium (Coumadin) 5 mg PO 1700 [facility] Last Admin: 10/19/18 17:24 Dose: 5 mg
[2018-10-20] MEDS: Warfarin Sodium 3 MG TAB PO SCH (17:14)
[2018-10-21] MEDS: Levothyroxine Sodium 25 MCG TAB PO SCH (06:19)
[2018-10-21 06:30] LABS: Hemoglobin 11.4 g/dL (14.0-18.0); Platelet Count 142 thou/uL (130-400)
[2018-10-21 06:31] LABS: Prothrombin Time 22.9 SEC (12.0-14.7)
[2018-10-21 06:50] LABS: Anion Gap 16 mmol/L (10-20); BUN (Urea Nitrogen) 33 mg/dL (8.4-25.7); Calc. Creatinine Clearance 23 mL/min (70-130); Calcium 7.7 mg/dL (7.8-10.44); Carbon Dioxide 21 mmol/L (23-31); Chloride 100 mmol/L (98-107); Estimated GFR-MDRD 31; Glucose 91 mg/dL (83-110); Magnesium 1.9 mg/dL (1.6-2.6); Potassium 3.8 mmol/L (3.5-5.1); Sodium 133 mmol/L (136-145)
[2018-10-21] MEDS: Furosemide 40 MG TAB PO SCH (08:09)
[2018-10-21] MEDS: Aspirin 81 mg Enteric Coated Tablet PO SCH (08:09)
[2018-10-21] MEDS: Senokot S 8.6-50 MG TAB PO SCH ×2 (08:09→20:05)
[2018-10-21] MEDS: Folic Acid 1 MG TAB PO SCH (08:09)
[2018-10-21] MEDS: Enoxaparin Sodium 60 MG/0.6 ML SYRINGE SC SCH (08:10)
[2018-10-21] MEDS: Cyanocobalamin (Vitamin B-12) 1,000 MCG TAB PO SCH (08:10)
[2018-10-21] MEDS: Carvedilol 3.125 MG TAB PO SCH ×2 (08:10→17:52)
--- NOTE | 2018-10-21 10:00 | PRG ---
DATE OF SERVICE: 10/21/2018 SUBJECTIVE: Sandy Davis who is essentially deaf. His niece is at the bedside, and he is feeling a lot better. OBJECTIVE: VITAL SIGNS: Temperature 97, blood pressure 118/74, respiratory rate 20, saturations 97%. GENERAL: He offers no complaints. CHEST: No wheezing or crackles. CARDIAC: Normal S1 and S2. No gallops. ABDOMEN: No masses. IMPRESSION: Atrial fibrillation, congestive heart failure, azotemia, dementia. PLAN: It appears he maybe at his baseline. Bibasilar infiltrates, probably CHF versus pneumonia. Continue empiric antibiotics. Adjust for renal failure. We will follow while in the MICU. Job ID: [id number] MTDD
--- NOTE | 2018-10-21 17:09 | PDOC.CTH ---
Cardiology Progress Note - Subjective He had a code green today while working with PT. He gets hypotensive when standing up. - Objective Vital Signs Temp Pulse Pulse Pulse Pulse Resp BP 10/21/18 15:23 98.2 F 10/21/18 11:17 98.5 F 10/21/18 11:02 80 79 70 66/48 L 10/21/18 09:50 84 125 H 103 H 109/77 10/21/18 07:14 97.8 F 10/21/18 06:25 10/21/18 06:00 20 BP BP BP BP BP Pulse Ox 10/21/18 15:23 10/21/18 11:17 10/21/18 11:02 51/40 L 91/73 113/70 13 L 10/21/18 09:50 121/80 10/21/18 07:14 10/21/18 06:25 118/74 103/83 10/21/18 06:00 Weight 157 lb 7 oz 10/20/18 10/21/18 10/22/18 06:59 06:59 06:59 Intake Total 730 130 Balance 730 130 - Physical Examination General/Neuro: NAD Neck: no JVD present Lungs: unlabored respirations Heart: other: (Irreg irreg.) Abdomen: soft Extremities: + edema B (trace) - Telemetry Telemetry Rhythm: Afib HR 80-100 - Labs Result Diagrams: 10/21/18 05:38 10/21/18 05:38 Troponin/CKMB CK-MB (CK-2) 2.7 ng/mL (0-6.6) 10/18/18 15:59 Troponin I 0.061 ng/mL (< 0.028) H 10/18/18 15:59 - Assessment/Plan 1. Afib RVR, rate controlled. 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 AMS 4. Likely dementia exacerbated by acute illness. Improved. 5. CKD stage 4 6. Severe hypoacusia 7. Hypotension, orthostatic PLAN: - Will stop Coreg due to orthostatic hypotension. - Prohibitive to do LHC given his elevated creatinine. - Medical therapy for now. - No ACEI due to renal dysfunction. - BP too low for BiDil. - Continue PO lasix dose. - Continue PT. - Likely at baseline mentation and fluid balance.
[2018-10-21] MEDS: Warfarin Sodium 3 MG TAB PO SCH (17:19)
--- NOTE | 2018-10-21 22:12 | PDOC.PN ---
- Subjective Encounter Start Date: 10/21/18 Encounter Start Time: 13:00 Patient seen and examined for CHF. No CP. No new complaints. No overnight events - Objective Resuscitation Status - Order Detail: 10/18/18 15:02 Resuscitation Status Routine Resuscitation Status: PRTL: Chem only Discussed with: d/w family at bedside MAR Reviewed: Yes Vital Signs & Weight: Vital Signs (12 hours) Temp Pulse Pulse Pulse BP BP BP 10/21/18 19:59 10/21/18 19:30 98.7 F 10/21/18 15:23 98.2 F 10/21/18 11:17 98.5 F 10/21/18 11:02 80 79 70 66/48 L 51/40 L 91/73 BP Pulse Ox Pulse Ox 10/21/18 19:59 100 10/21/18 19:30 10/21/18 15:23 10/21/18 11:17 10/21/18 11:02 113/70 13 L Weight Weight 157 lb 7 oz Most Recent Monitor Data Heart Rate from ECG 83 NIBP 91/59 NIBP BP-Mean 69 Respiration from ECG 17 SpO2 98 I&O: 10/20/18 10/21/18 10/22/18 06:59 06:59 06:59 Intake Total 730 130 360 Balance 730 130 360 Result Diagrams: 10/22/18 04:36 10/22/18 04:35 EKG Reviewed by me: Yes (Tele Afib) Phys Exam - Physical Examination Constitutional: NAD Respiratory: no wheezing, no rhonchi Cardiovascular: no rub, irregular Gastrointestinal: soft, positive bowel sounds Neurological: moves all 4 limbs Dx/Plan - Plan DVT proph w/lovenox IMPRESSION: Atrial fibrillation with rapid ventricular response. - rate controlled. Off Cardizem drip Acute on chronic systolic/diastolic heart failure, ACC stage C. s/p Code Green/Syncope - No new episode of Syncope Hypertension - Patient hypotensive Dementia. Hypomagnesemia - replaced Acute kidney injury on chronic kidney disease, stage 3. Moderate protein-calorie malnutrition. Abnormal LFTs secondary to passive hepatic congestion. Type 2 myocardial infarction. Elevated TSH with normal free T4. (Subclinical hypothyroidism) - Started on low dose Levothyroxine Metabolic acidosis. Dyslipidemia/Physical deconditioning/Chronic hearing loss. PLAN: DC Lovenox INR 2 today Cont Lasix Coreg on hold due to hypotension No ACEI/ARB/Aldactone due to renal insufficiency. Cont other meds as below AM labs Accepted at [facility]. Review of Systems - Review of Systems Respiratory: negative: Cough, Dry, Shortness of Breath, Hemoptysis, SOB with Excertion, Pleuritic Pain, Sputum, Wheezing Cardiovascular: negative: chest pain, palpitations, orthopnea, paroxysmal nocturnal dyspnea, edema, light headedness, other - Medications/Allergies Allergies/Adverse Reactions: Allergies Allergy/AdvReac Type Severity Reaction Status Date / Time No Known Allergies Allergy Verified 10/16/18 22:24 Medications: Current Medications Acetaminophen (Tylenol) 650 mg PO Q4H PRN PRN Reason: Headache/Fever/Mild Pain (1-3) Aspirin (Ecotrin) 81 mg PO DAILY [facility] Last Admin: 10/21/18 08:09 Dose: 81 mg Atropine Sulfate (Atropine) 0.5 mg IVP ASDIR PRN PRN Reason: Sustained Bradycardia HR < 30s Calcium Carbonate (Tums) 1,000 mg PO Q4H PRN PRN Reason: Heartburn or Indigestion Cyanocobalamin (Vitamin B-12) 1,000 mcg PO DAILY [facility] Last Admin: 10/21/18 08:10 Dose: 1,000 mcg Folic Acid (Folvite) 1 mg PO DAILY [facility] Last Admin: 10/21/18 08:09 Dose: 1 mg Levofloxacin (Levaquin) 500 mg PO 0600 [facility] Stop: 10/26/18 06:01 Last Admin: 10/21/18 06:19 Dose: 500 mg Levothyroxine Sodium (Synthroid) 25 mcg PO 0600 [facility] Last Admin: 10/21/18 06:19 Dose: 25 mcg Miscellaneous Medication (Pharmacy To Dose) 1 each PO .WARFARIN [facility] Ondansetron HCl (Zofran Odt) 4 mg PO Q6H PRN PRN Reason: Nausea/Vomiting Ondansetron HCl (Zofran) 4 mg IVP Q6H PRN PRN Reason: Nausea/Vomiting Senna/Docusate Sodium (Senokot S) 1 tab PO BID [facility] Last Admin: 10/21/18 20:05 Dose: 1 tab Sodium Chloride (Flush - Normal Saline) 10 ml IVF PRN PRN PRN Reason: Saline Flush Last Admin: 10/21/18 20:05 Dose: 10 ml Warfarin Sodium (Coumadin) 6 mg PO 1700 [facility] Last Admin: 10/21/18 17:19 Dose: 6 mg
[2018-10-22 04:50] LABS: Hemoglobin 10.8 g/dL (14.0-18.0); Platelet Count 140 thou/uL (130-400)
[2018-10-22 04:55] LABS: INR-International Normal Ratio 3.1; Prothrombin Time 31.8 SEC (12.0-14.7)
[2018-10-22 05:08] LABS: Anion Gap 16 mmol/L (10-20); BUN (Urea Nitrogen) 33 mg/dL (8.4-25.7); Calc. Creatinine Clearance 24 mL/min (70-130); Calcium 7.7 mg/dL (7.8-10.44); Carbon Dioxide 20 mmol/L (23-31); Chloride 101 mmol/L (98-107); Estimated GFR-MDRD 33; Glucose 103 mg/dL (83-110); Potassium 3.7 mmol/L (3.5-5.1); Sodium 133 mmol/L (136-145)
[2018-10-22] MEDS: Levothyroxine Sodium 25 MCG TAB PO SCH (06:00)
[2018-10-22] MEDS: Cyanocobalamin (Vitamin B-12) 1,000 MCG TAB PO SCH (08:46)
[2018-10-22] MEDS: Aspirin 81 mg Enteric Coated Tablet PO SCH (08:46)
[2018-10-22] MEDS: Folic Acid 1 MG TAB PO SCH (08:46)
[2018-10-22] MEDS: Senokot S 8.6-50 MG TAB PO SCH ×2 (08:46→20:41)
--- NOTE | 2018-10-22 09:30 | PRG ---
DATE OF SERVICE: 10/22/2018 SUBJECTIVE: Sandy Davis is an 82-year-old gentleman. This morning, he appears to be much more awake, responsive. OBJECTIVE: VITAL SIGNS: His blood pressure is 91/62, pulse 101, saturations are 90% on room air. He is afebrile. I's and O's have been consistently difficult to obtain. He is wearing a diaper. CHEST: No wheezing or crackles. CARDIAC: Normal S1 and S2. No gallops. ABDOMEN: No masses. LABORATORY DATA: Creatinine 2.3. ASSESSMENT: 1. Atrial fibrillation. 2. Congestive heart failure. 3. Electrolyte imbalance. 4. Advanced age. 5. Pneumonia. PLAN: Continue PT, supportive care. Hopefully, he can be discharged home on antibiotics. We will follow. Job ID: [id number]
--- NOTE | 2018-10-22 10:41 | PDOC.PN ---
- Subjective Encounter Start Date: 10/22/18 Encounter Start Time: 10:00 Patient seen and examined for CHF/AFib. Became hypotensive yesterday with PT. Hawa maurerd. No overnight events. No CP/SOB. - Objective Resuscitation Status - Order Detail: 10/18/18 15:02 Resuscitation Status Routine Resuscitation Status: PRTL: Chem only Discussed with: d/w family at bedside MAR Reviewed: Yes Vital Signs & Weight: Vital Signs (12 hours) Temp Pulse Ox 10/22/18 10:36 98.0 F 10/22/18 07:10 97.7 F 10/22/18 03:43 97.4 F L 10/22/18 02:15 96 10/21/18 23:28 97.6 F Weight Weight 157 lb 8 oz Most Recent Monitor Data Heart Rate from ECG 101 NIBP 91/62 NIBP BP-Mean 71 Respiration from ECG 18 SpO2 100 I&O: 10/21/18 10/22/18 10/23/18 06:59 06:59 06:59 Intake Total 130 470 Balance 130 470 Result Diagrams: 10/22/18 04:36 10/22/18 04:35 EKG Reviewed by me: Yes (Tele Afib) Phys Exam - Physical Examination Constitutional: NAD Respiratory: no wheezing, no rhonchi Cardiovascular: no rub, irregular Gastrointestinal: soft, non-tender, positive bowel sounds Musculoskeletal: edema present Neurological: moves all 4 limbs Dx/Plan - Plan IMPRESSION: New onset Atrial fibrillation with rapid ventricular response. - rate controlled. Off Cardizem drip. Coreg on hold due to low BP. Started on Anticoag INR supratherapeutic Acute on chronic systolic/diastolic heart failure, ACC stage C. Lasix on hold due to low BP s/p Code Green/Syncope due to hypotension - No new episodes h/o Hypertension - Patient hypotensive Dementia. Acute kidney injury on chronic kidney disease, stage 3. Moderate protein-calorie malnutrition. Abnormal LFTs secondary to passive hepatic congestion. Type 2 myocardial infarction. Elevated TSH with normal free T4. (Subclinical hypothyroidism) - Started on low dose Levothyroxine Metabolic acidosis. Swallow dysfunction Dyslipidemia/Physical deconditioning/Chronic hearing loss/Hypomagnesemia - replaced PLAN: INR 3.1 today - Will hold Warfarin No ACEI/ARB/Aldactone due to renal insufficiency. Cont other meds as below AM labs including Cortisol Accepted at [facility] once cleared by Cardiology Review of Systems - Review of Systems Respiratory: negative: Cough, Dry, Shortness of Breath, Hemoptysis, SOB with Excertion, Pleuritic Pain, Sputum, Wheezing Cardiovascular: negative: chest pain, palpitations, orthopnea, paroxysmal nocturnal dyspnea, edema, light headedness, other - Medications/Allergies Allergies/Adverse Reactions: Allergies Allergy/AdvReac Type Severity Reaction Status Date / Time No Known Allergies Allergy Verified 10/16/18 22:24 Medications: Current Medications Acetaminophen (Tylenol) 650 mg PO Q4H PRN PRN Reason: Headache/Fever/Mild Pain (1-3) Aspirin (Ecotrin) 81 mg PO DAILY [facility] Last Admin: 10/22/18 08:46 Dose: 81 mg Atropine Sulfate (Atropine) 0.5 mg IVP ASDIR PRN PRN Reason: Sustained Bradycardia HR < 30s Calcium Carbonate (Tums) 1,000 mg PO Q4H PRN PRN Reason: Heartburn or Indigestion Cefdinir (Omnicef) 300 mg PO BID [facility] Stop: 10/27/18 21:01 Cyanocobalamin (Vitamin B-12) 1,000 mcg PO DAILY [facility] Last Admin: 10/22/18 08:46 Dose: 1,000 mcg Folic Acid (Folvite) 1 mg PO DAILY [facility] Last Admin: 10/22/18 08:46 Dose: 1 mg Levothyroxine Sodium (Synthroid) 25 mcg PO 0600 [facility] Last Admin: 10/22/18 06:00 Dose: 25 mcg Miscellaneous Medication (Pharmacy To Dose) 1 each PO .WARFARIN [facility] Ondansetron HCl (Zofran Odt) 4 mg PO Q6H PRN PRN Reason: Nausea/Vomiting Ondansetron HCl (Zofran) 4 mg IVP Q6H PRN PRN Reason: Nausea/Vomiting Senna/Docusate Sodium (Senokot S) 1 tab PO BID [facility] Last Admin: 10/22/18 08:46 Dose: 1 tab Sodium Chloride (Flush - Normal Saline) 10 ml IVF PRN PRN PRN Reason: Saline Flush Last Admin: 10/21/18 20:05 Dose: 10 ml Warfarin Sodium (Coumadin) 6 mg PO 1700 [facility] Last Admin: 10/21/18 17:19 Dose: 6 mg
--- NOTE | 2018-10-22 16:45 | PDOC.CTH ---
Cardiology Progress Note - Subjective Significantly more fluid overload today, LE edema severe. - Objective Vital Signs Temp Pulse Pulse BP BP Pulse Ox Pulse Ox 10/22/18 14:53 106 H 101 H 106/71 113/79 96 94 L 10/22/18 10:36 98.0 F 10/22/18 07:10 97.7 F Weight 157 lb 8 oz 10/21/18 10/22/18 10/23/18 06:59 06:59 06:59 Intake Total 130 470 Balance 130 470 - Physical Examination General/Neuro: NAD Neck: no JVD present Lungs: CTA, unlabored respirations Heart: other: (Irreg irreg) Abdomen: NT/ND Extremities: + edema B (4+) - Telemetry Telemetry Rhythm: Afib HR 80's to 90's. - Labs Result Diagrams: 10/22/18 04:36 10/22/18 04:35 Troponin/CKMB CK-MB (CK-2) 2.7 ng/mL (0-6.6) 10/18/18 15:59 Troponin I 0.061 ng/mL (< 0.028) H 10/18/18 15:59 - Assessment/Plan 1. Afib RVR, rate controlled. 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 Acute on chronic systolic heart failure. RV faiure. 4. Likely dementia exacerbated by acute illness. Improved. 5. CKD stage 4 6. Severe hypoacusia 7. Hypotension, orthostatic PLAN: - Will start dobutamine to help diuresis, will start IV lasix again. - Prohibitive to do LHC given his elevated creatinine. - No ACEI due to renal dysfunction. - BP too low for BiDil or BB.
[2018-10-22] MEDS ORDERED: Furosemide 40 MG/4 ML VIAL SLOW IVP SCH (17:00)
[2018-10-22] MEDS: DOBUTamine 500 mg/250 ml 250 ML IVPB SCH (18:04)
[2018-10-22] MEDS: Cefdinir 300 MG CAP PO SCH (20:41)
[2018-10-23 05:05] LABS: INR-International Normal Ratio 3.6; Prothrombin Time 35.9 SEC (12.0-14.7)
[2018-10-23 05:23] LABS: Anion Gap 13 mmol/L (10-20); BUN (Urea Nitrogen) 32 mg/dL (8.4-25.7); Calc. Creatinine Clearance 24 mL/min (70-130); Calcium 8.1 mg/dL (7.8-10.44); Carbon Dioxide 24 mmol/L (23-31); Chloride 101 mmol/L (98-107); Estimated GFR-MDRD 33; Glucose 126 mg/dL (83-110); Potassium 3.4 mmol/L (3.5-5.1); Sodium 135 mmol/L (136-145)
[2018-10-23 05:34] LABS: Band 3 % (5-11); Hemoglobin 10.8 g/dL (14.0-18.0); Lymphocytes 25 % (21-51); MDiff Complete? YES; Mean Corpuscular HGB CONC 33.3 g/dL (32.0-36.0); Mean Corpuscular Hemoglobin 32.4 pg (27.0-31.0); Mean Corpuscular Volume 97.2 fL (78.0-98.0); Mean Platelet Volume 11.2 fL (7.4-10.4); Monocytes 10 % (0-10); Neutrophil 62 % (42-75); Nucleated RBC 1 % (0); Platelet Count 127 thou/uL (130-400); Platelet Morphology Comment Appears Adequate; RBC Distribution Width 19.1 % (11.5-14.5); Red Blood Cell (RBC) Count 3.34 mill/uL (4.70-6.10); White Blood Cell (WBC) Count 4.2 thou/uL (4.8-10.8)
[2018-10-23] MEDS: Levothyroxine Sodium 25 MCG TAB PO SCH (06:14)
[2018-10-23] MEDS: Furosemide 40 MG/4 ML VIAL SLOW IVP SCH ×2 (06:15→15:50)
--- NOTE | 2018-10-23 08:45 | PRG ---
DATE OF SERVICE: 10/23/2018 SUBJECTIVE: The patient is seen and examined at the bedside. He is quite demented my command. OBJECTIVE: VITAL SIGNS: Blood pressure is 98/56, pulse is 91, respiratory rate is 12. HEENT: His eyes, sclerae are nonicteric. Oral mucosa is moist. LUNGS: Clear. HEART: S1 and S2. Irregularly irregular. No S3. No S4. ABDOMEN: Soft, nontender, mildly distended. EXTREMITIES: No clubbing, cyanosis, or edema. NEUROLOGICAL: He is alert and oriented x1. There are no any motor deficits. LABORATORY DATA: Labs showed white count of 4.2, hemoglobin 10.8, hematocrit 32.4, platelet count 127,000. INR 3.6. Sodium 135, potassium 3.4, chloride 101, CO2 of 24, BUN 32, creatinine 2.31, glucose 126, calcium 8.1. BNP done yesterday was 386, and cortisol 13.4. IMPRESSION: 1. Atrial fibrillation with rapid ventricular response, rate controlled. 2. Acute on chronic systolic diastolic heart failure, stage C. 3. Hypotension. 4. Acute kidney injury on chronic kidney disease stage III. 5. Myocardial infarction, type 2. 6. Elevated INR. PLAN: We are going to continue dopamine drip. He is going to continue his Omnicef and levothyroxine. He will continue his Lasix. Obtain LFTs and do ultrasound on his liver, looking for explanation why his INR is going up. Job ID: [id number]
--- NOTE | 2018-10-23 08:58 | PRG ---
DATE OF SERVICE: 10/23/2018 SUBJECTIVE: This morning, denies any pain or discomfort. OBJECTIVE: VITAL SIGNS: Saturations are 95% on room air, temperature 97, blood pressure is 90/56, respiratory rate 18. I's and O's difficult to assess. CHEST: No wheezing or crackles. CARDIAC: Normal S1, S2. No gallops. ABDOMEN: No masses. LABORATORY DATA: His creatinine is 2.3. White count is normal. H is unremarkable. ASSESSMENT: Atrial fibrillation, congestive heart failure, abnormal x-ray, bilateral infiltrates, pneumonia. PLAN: INR is 3.6. I would hold his Coumadin, start at low-dose. Otherwise, continue PT, supportive care. Job ID: [id number]
[2018-10-23 09:04] LABS: ALT (SGPT) 8 U/L (8-55); AST (SGOT) 22 U/L (5-34); Albumin 2.3 g/dL (3.4-4.8); Alkaline Phosphatase 59 U/L (40-150); Bilirubin, Direct 0.3 mg/dL (0.1-0.3); Bilirubin, Total 0.5 mg/dL (0.2-1.2)
--- NOTE | 2018-10-23 09:12 | RAD ---
Portable chest: INDICATIONS: ICD follow-up. Pneumonia. COMPARISON: 10/18/2018 Bilateral effusions and bibasilar infiltrate and atelectasis again noted. Upper lung car remain ae rated and clear. IMPRESSION: Bibasilar opacification, not significantly changed.
[2018-10-23] MEDS: Senokot S 8.6-50 MG TAB PO SCH ×2 (09:35→21:04)
[2018-10-23] MEDS: Aspirin 81 mg Enteric Coated Tablet PO SCH (09:35)
[2018-10-23] MEDS: Cefdinir 300 MG CAP PO SCH ×2 (09:35→21:04)
[2018-10-23] MEDS: Cyanocobalamin (Vitamin B-12) 1,000 MCG TAB PO SCH (09:35)
[2018-10-23] MEDS: Folic Acid 1 MG TAB PO SCH (09:35)
--- NOTE | 2018-10-23 09:46 | ULT ---
Sonogram right upper quadrant HISTORY: Abnormal liver function tests. Abdominal pain. FINDINGS: Small amount of echogenic material within the dependent portion of the gallbladder lumen is present without focal stone or shadowing. No gallbladder wall thickening or pericholecystic fluid. Common duct is 0.3 cm. Liver shows no focal abnormalities. Free fluid is seen throughout the upper ab domen. IMPRESSION: Biliary sludge. Consistent with chronic gallbladder dyskinesis. No evidence of acute bili halie obstruction. Free fluid throughout the abdomen. Cause is not evident.
[2018-10-23] MEDS: DOBUTamine 500 mg/250 ml 250 ML IVPB SCH (17:36)
--- NOTE | 2018-10-23 18:47 | PDOC.CTH ---
Cardiology Progress Note - Subjective He has diuresed better. BP still borderline. - Objective Vital Signs Temp Pulse Pulse BP BP 10/23/18 14:55 97.4 F L 10/23/18 10:37 97.5 F L 10/23/18 09:48 111 H 102 H 111/74 94/64 10/23/18 07:16 97.4 F L Weight 158 lb 11.725 oz 10/22/18 10/23/18 10/24/18 06:59 06:59 06:59 Intake Total 470 842.4 605 Balance 470 842.4 605 - Physical Examination General/Neuro: NAD Neck: no JVD present Lungs: CTA, unlabored respirations Heart: other: (Irreg, irreg.) Abdomen: NT/ND Extremities: + edema B (2+) - Telemetry Telemetry Rhythm: Afib HR 70s. - Labs Result Diagrams: 10/23/18 04:20 10/23/18 04:20 Troponin/CKMB CK-MB (CK-2) 2.7 ng/mL (0-6.6) 10/18/18 15:59 Troponin I 0.061 ng/mL (< 0.028) H 10/18/18 15:59 - Assessment/Plan 1. Afib RVR, rate controlled. 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 Acute on chronic systolic heart failure. RV faiure. 4. Likely dementia exacerbated by acute illness. Improved. 5. CKD stage 4 6. Severe hypoacusia 7. Hypotension, orthostatic PLAN: - Continue dobutamine. - Will increase dose of IV lasix. - Prohibitive to do LHC given his elevated creatinine. - No ACEI due to renal dysfunction. - BP too low for BiDil or BB.
[2018-10-24 06:07] LABS: INR-International Normal Ratio 3.5; Prothrombin Time 34.7 SEC (12.0-14.7)
[2018-10-24 06:12] LABS: Anion Gap 12 mmol/L (10-20); BUN (Urea Nitrogen) 31 mg/dL (8.4-25.7); Calc. Creatinine Clearance 24 mL/min (70-130); Calcium 8.1 mg/dL (7.8-10.44); Carbon Dioxide 26 mmol/L (23-31); Chloride 102 mmol/L (98-107); Estimated GFR-MDRD 32; Glucose 108 mg/dL (83-110); Potassium 3.4 mmol/L (3.5-5.1); Sodium 137 mmol/L (136-145)
[2018-10-24] MEDS: Levothyroxine Sodium 25 MCG TAB PO SCH (06:13)
[2018-10-24] MEDS: Furosemide 40 MG/4 ML VIAL SLOW IVP SCH ×2 (06:13→14:52)
--- NOTE | 2018-10-24 08:15 | PRG ---
DATE OF SERVICE: 10/24/2018 SUBJECTIVE: The patient is seen and examined at the bedside. He does not have much complaints to offer. He feels fine but per nurse, we know that as soon as he sits up, his blood pressure drops even further down. OBJECTIVE: VITAL SIGNS: Blood pressure is 95/55, pulse is 96, respiratory rate is 13, temperature is 99.2. HEENT: His head is atraumatic and normocephalic. Sclerae are nonicteric. LUNGS: Breath sounds diminished at both bases with few crackles bilaterally at both bases. No wheezing. HEART: S1, S2 distant. No S3. No S4. Irregularly irregular. ABDOMEN: Soft, nontender, nondistended. EXTREMITIES: 2+ peripheral edema up to the waist almost. NEUROLOGICAL: He follows my short simple commands. He moves his all 4 extremities. I do not see any motor deficits. LABORATORY DATA: Showed INR of 3.5, PT of 34.7. Sodium of 137, potassium 3.4, chloride 102, CO2 26, BUN 31, creatinine 2.34, calcium 8.1, glucose 108, estimated GFR is 32. X-ray showed bilateral effusions and bibasilar infiltrate and atelectasis. Ultrasound of the abdomen showed biliary sludge consistent with chronic gallbladder dyskinesias. No evidence of acute biliary obstruction. The liver shows no focal abnormalities. Free fluid is seen throughout the upper abdomen. IMPRESSION: 1. Atrial fibrillation with RVR, rate controlled. 2. Hypotension. 3. Acute on chronic systolic diastolic heart failure, stage C. 4. Hypokalemia for supplementation. 5. Acute kidney injury on chronic kidney disease stage 3. 6. Myocardial infarction type 2. 7. Elevated INR most likely secondary to liver congestion from his congestive heart failure. 8. His liver function test elevated and ultrasound of the abdomen showed some free fluid in the abdomen, but no any focal problems with liver. PLAN: Plan is to get him stockings. We will see whether this is going to help with the blood pressure despite of dopamine drip he is on, his blood pressure is still running low and has massive swelling in his lower extremities up to his waist and he is on Lasix. We will continue Lasix and Cardiology will make additional recommendation. Job ID: [id number]
[2018-10-24] MEDS: Cyanocobalamin (Vitamin B-12) 1,000 MCG TAB PO SCH (08:52)
[2018-10-24] MEDS: Folic Acid 1 MG TAB PO SCH (08:52)
[2018-10-24] MEDS: Aspirin 81 mg Enteric Coated Tablet PO SCH (08:52)
[2018-10-24] MEDS: Senokot S 8.6-50 MG TAB PO SCH ×2 (08:52→20:23)
[2018-10-24] MEDS: Cefdinir 300 MG CAP PO SCH ×2 (08:52→20:23)
--- NOTE | 2018-10-24 09:06 | PRG ---
DATE OF SERVICE: 10/24/2018 SUBJECTIVE: This morning, is awake, alert, and responsive. His x-ray yesterday shows worsening bilateral pleural effusion, infiltrate. He was started on Dobutrex yesterday for cardiomyopathy. OBJECTIVE: VITAL SIGNS: Saturations are 90% on room air, temperature 97, blood pressure 90/67. CHEST: Decreased breath sounds. No wheezing. CARDIAC: Normal S1, S2. No gallops. ABDOMEN: No masses. IMPRESSION AND PLAN: Congestive heart failure, cardiomyopathy, supraventricular tachycardia, possibly pneumonia. He is on antibiotics for pneumonia. Lasix and Dobutrex for cardiomyopathy. Prognosis is guarded. We will follow while in the MICU. Job ID: [id number]
[2018-10-24] MEDS ORDERED: Potassium Chloride 20 MEQ TAB PO SCH (09:30)
--- NOTE | 2018-10-24 15:48 | PDOC.CTH ---
Cardiology Progress Note - Subjective His BP is ok while lying down but goes low when standing up. He is diuresing very well. His breathing is much better and he states he feels better than ever. - Objective Vital Signs Temp Pulse Pulse BP BP Pulse Ox 10/24/18 15:35 98.1 F 10/24/18 15:02 98.1 F 10/24/18 11:20 112 H 112 H 100/68 90/66 10/24/18 10:38 97.6 F 10/24/18 07:56 96 10/24/18 07:16 97.0 F L 10/24/18 03:56 99.0 F Weight 159 lb 14.4 oz 10/23/18 10/24/18 10/25/18 06:59 06:59 06:59 Intake Total 842.4 805 Balance 842.4 805 - Physical Examination General/Neuro: alert & oriented x3, NAD Neck: no JVD present Lungs: unlabored respirations Heart: other: (Irreg HR 60's to 80's. ) Abdomen: soft Extremities: + edema B (2+ improved.) - Telemetry Telemetry Rhythm: Afib - Labs Result Diagrams: 10/23/18 04:20 10/24/18 04:29 Troponin/CKMB CK-MB (CK-2) 2.7 ng/mL (0-6.6) 10/18/18 15:59 Troponin I 0.061 ng/mL (< 0.028) H 10/18/18 15:59 - Assessment/Plan 1. Afib RVR, rate controlled. 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 Acute on chronic systolic heart failure. RV faiure. 4. Likely dementia exacerbated by acute illness. Improved. 5. CKD stage 4 6. Severe hypoacusia 7. Hypotension, orthostatic PLAN: - Will hold dobutane today. - Will switch lasix to PO. - Prohibitive to do LHC given his elevated creatinine. - No ACEI due to renal dysfunction. - BP too low for BiDil or BB. - Will add midodrine for his orthostatic hypotension.
[2018-10-24] MEDS: Midodrine HCl 5 MG TAB PO SCH (20:23)
[2018-10-25] MEDS: Levothyroxine Sodium 25 MCG TAB PO SCH (06:15)
[2018-10-25 08:11] LABS: INR-International Normal Ratio 3.1; Prothrombin Time 32.1 SEC (12.0-14.7)
[2018-10-25] MEDS: Midodrine HCl 5 MG TAB PO SCH ×3 (10:30→20:41)
[2018-10-25] MEDS: Folic Acid 1 MG TAB PO SCH (10:30)
[2018-10-25] MEDS: Furosemide 40 MG TAB PO SCH ×2 (10:30→15:05)
[2018-10-25] MEDS: Cyanocobalamin (Vitamin B-12) 1,000 MCG TAB PO SCH (10:30)
[2018-10-25] MEDS: Aspirin 81 mg Enteric Coated Tablet PO SCH (10:30)
[2018-10-25] MEDS: Cefdinir 300 MG CAP PO SCH ×2 (10:30→20:41)
[2018-10-25] MEDS: Senokot S 8.6-50 MG TAB PO SCH ×2 (10:30→20:41)
[2018-10-25 11:42] LABS: Anion Gap 13 mmol/L (10-20); BUN (Urea Nitrogen) 27 mg/dL (8.4-25.7); Calc. Creatinine Clearance 26 mL/min (70-130); Calcium 8.1 mg/dL (7.8-10.44); Carbon Dioxide 27 mmol/L (23-31); Chloride 100 mmol/L (98-107); Estimated GFR-MDRD 35; Glucose 108 mg/dL (83-110); Potassium 3.7 mmol/L (3.5-5.1); Sodium 136 mmol/L (136-145)
--- NOTE | 2018-10-25 14:49 | PRG ---
DATE OF SERVICE: 10/25/2018 SUBJECTIVE: The patient is seen and examined at the bedside. The patient is gradually doing better. Apparently, his blood pressure is holding up, significantly improved since yesterday. OBJECTIVE: VITAL SIGNS: Blood pressure is 119/72, pulse is 79, respiratory rate is 11, O2 saturation is in normal range. HEENT: His pupils are responding to light properly. Sclerae are nonicteric. Oral mucosa is moist. NECK: Supple. Thyroid is not palpable. LUNGS: Breath sounds somewhat diminished at both bases. HEART: S1, S2. Irregularly irregular. No S3. No S4. ABDOMEN: Soft, nontender, nondistended. EXTREMITIES: 2+ peripheral edema somewhat improved since yesterday. NEUROLOGIC: He tries to follow my simple commands. He is able to move his all 4 extremities. There are no any motor deficits. LABORATORY DATA: Labs showed normal electrolytes, CO2 of 27, BUN 27, creatinine 2.19, glucose 108, calcium 8.1, INR 3.1, PT 32.1. IMPRESSION: 1. Atrial fibrillation with rapid ventricular response, rate controlled. 2. [id number] systolic and diastolic heart failure stage C. 3. Acute kidney injury on chronic kidney injury stage 3. 4. Myocardial infarction type 2. 5. Hypotension, resolved. 6. Elevated INR, most likely secondary to liver congestion from his congestive heart failure. The patient is not on warfarin. PLAN: The patient might benefit from hoses up to his thighs. This was recommended for the nurse to get it. I did not see the patient wearing those. He can be transferred to the telemetry floor if his blood pressure is stable. His dobutamine drip was discontinued yesterday. He is continuing on his Lasix p.o. 40 mg twice a day. He was started on midodrine 5 mg 3 times a day by manufacturing support engineer. Discontinue his antibiotic. Job ID: [id number]
--- NOTE | 2018-10-25 15:46 | PRG ---
DATE OF SERVICE: 10/25/2018 SUBJECTIVE: Sandy Davis has no complaints. He is extremely hard of hearing. OBJECTIVE: VITAL SIGNS: He is afebrile. Blood pressure 119/72, respiratory rates in the teens, heart rates in the 70s. LUNGS: Clear anteriorly. HEART: Regular rhythm. ABDOMEN: Soft. LABORATORY DATA: Sodium 136, potassium 3.7, chloride 100, bicarb 27, BUN 27, and creatinine 2.19. Yesterday's creatinine was 2.34. He is very cachectic appearing. IMPRESSION: 1. Congestive heart failure with cachexia. 2. Possible pneumonia. 3. Acute on chronic kidney disease. There are no intake and output measurements since he does have a Mcrae. His weight is down 4 pounds since admission if the weight is accurate. We will continue to follow as long as he is on the intermediate care unit. He remains in atrial fibrillation with controlled rate. His last ejection fraction was 35% to 40%. He is extremely hard of hearing and could not tell me how old he was. He is cooperative, however. The fact that he is having orthostatic drops in blood pressure is a negative prognostic sign. Job ID: [id number]
[2018-10-26 05:34] LABS: INR-International Normal Ratio 3.1; Prothrombin Time 31.7 SEC (12.0-14.7)
[2018-10-26 05:48] LABS: Anion Gap 11 mmol/L (10-20); BUN (Urea Nitrogen) 25 mg/dL (8.4-25.7); Calc. Creatinine Clearance 29 mL/min (70-130); Calcium 7.9 mg/dL (7.8-10.44); Carbon Dioxide 26 mmol/L (23-31); Chloride 100 mmol/L (98-107); Estimated GFR-MDRD 41; Glucose 98 mg/dL (83-110); Potassium 3.3 mmol/L (3.5-5.1); Sodium 134 mmol/L (136-145)
[2018-10-26] MEDS: Levothyroxine Sodium 25 MCG TAB PO SCH (06:33)
[2018-10-26] MEDS: Cefdinir 300 MG CAP PO SCH ×2 (09:27→20:42)
[2018-10-26] MEDS: Midodrine HCl 5 MG TAB PO SCH ×3 (09:27→20:42)
[2018-10-26] MEDS: Folic Acid 1 MG TAB PO SCH (09:27)
[2018-10-26] MEDS: Senokot S 8.6-50 MG TAB PO SCH ×2 (09:27→20:42)
[2018-10-26] MEDS: Aspirin 81 mg Enteric Coated Tablet PO SCH (09:27)
[2018-10-26] MEDS: Furosemide 40 MG TAB PO SCH ×2 (09:27→15:38)
[2018-10-26] MEDS: Cyanocobalamin (Vitamin B-12) 1,000 MCG TAB PO SCH (09:27)
--- NOTE | 2018-10-26 11:18 | PRG ---
DATE OF SERVICE: 10/26/2018 SUBJECTIVE: The patient is seen and examined at the bedside. He does not have much complaints to offer. He has quite significant dementia, but he follows my commands. OBJECTIVE: VITAL SIGNS: Blood pressure is 93/66, pulse is 83, temperature is 98.4, respirations 13. HEENT: His head is atraumatic and normocephalic. Sclerae are nonicteric. Pupils responding to light properly. NECK: Supple. LUNGS: Clear. HEART: S1, S2. Irregularly irregular. There is a systolic murmur at the right sternal border 2/6. ABDOMEN: Soft, nontender. Bowel sounds are present. No organomegaly. EXTREMITIES: 1 to 2+ peripheral edema similar bilateral on both lower extremities. LABORATORY DATA: INR is 3.1. Again, PT is 31.7. Sodium of 134, potassium 3.3, chloride 100, CO2 of 26, BUN 25, creatinine 1.92. The rest of chemistry is within normal limits. IMPRESSION: 1. Hypotension, improved on midodrine, but systolic blood pressure is again low this morning. We will wait until Cardiology input for today. 2. Atrial fibrillation with rapid ventricular response, rate controlled. 3. Acute on chronic systolic and diastolic heart failure, stage C, on diuretics. 4. Acute kidney injury on chronic kidney injury stage 3, improving. 5. Myocardial infarction, type 2. 6. Elevated INR, most likely some interaction between antibiotics and warfarin, which is on hold and we will recheck his INR tomorrow morning and if it is going down, he will be started on Lasix. PLAN: Plan is to continue his midodrine. Continue diuresis. He seems to be gradually getting better. His blood pressure was holding up on midodrine the first day. Today, we have systolic blood pressure less than 100, but the patient is asymptomatic and he should be able to go to telemetry today. Job ID: [id number]
--- NOTE | 2018-10-26 16:13 | PRG ---
DATE OF SERVICE: 10/26/2018 SUBJECTIVE: Sandy Davis has no complaints. He is probably close to his baseline. OBJECTIVE: VITAL SIGNS: He is afebrile. He is on room air. Blood pressure 92/64, heart rate 77, and respiratory rate is 19. LUNGS: Clear. HEART: Regular rhythm. ABDOMEN: Soft and nontender. EXTREMITIES: Without edema. LABORATORY DATA: White count 4.2, hemoglobin 10.8, platelets 127 three days ago. There is no CBC today. Sodium 134, potassium 3.3, chloride 100, bicarb 26, BUN 25, and creatinine 1.92. IMPRESSION: 1. Congestive heart failure. 2. Cachexia with protein malnutrition and probable intravascular volume depletion on admission. 3. Possible pneumonia. 4. Acute on chronic kidney disease. He can move out of the intermediate care unit in my opinion. Job ID: [id number]
[2018-10-27 05:34] LABS: Prothrombin Time 31.4 SEC (12.0-14.7)
[2018-10-27 06:06] LABS: Anion Gap 10 mmol/L (10-20); BUN (Urea Nitrogen) 23 mg/dL (8.4-25.7); Calc. Creatinine Clearance 33 mL/min (70-130); Calcium 7.7 mg/dL (7.8-10.44); Carbon Dioxide 28 mmol/L (23-31); Chloride 101 mmol/L (98-107); Estimated GFR-MDRD 48; Glucose 99 mg/dL (83-110); Sodium 136 mmol/L (136-145)
[2018-10-27] MEDS: Levothyroxine Sodium 25 MCG TAB PO SCH (06:06)
[2018-10-27] MEDS: Cyanocobalamin (Vitamin B-12) 1,000 MCG TAB PO SCH (10:10)
[2018-10-27] MEDS: Cefdinir 300 MG CAP PO SCH ×2 (10:10→20:14)
[2018-10-27] MEDS: Senokot S 8.6-50 MG TAB PO SCH ×2 (10:10→20:14)
[2018-10-27] MEDS: Midodrine HCl 5 MG TAB PO SCH ×3 (10:10→20:14)
[2018-10-27] MEDS: Aspirin 81 mg Enteric Coated Tablet PO SCH (10:11)
[2018-10-27] MEDS: Furosemide 40 MG TAB PO SCH ×2 (10:11→15:05)
[2018-10-27] MEDS: Folic Acid 1 MG TAB PO SCH (10:11)
[2018-10-27] MEDS ORDERED: Magnesium Sulfate 4 GM in Sodium Chloride 0.9% 250 ML 250 ML IVPB SCH (11:30)
[2018-10-27] MEDS ORDERED: Potassium Chloride 20 MEQ TAB PO SCH ×2 (15:00→17:00)
--- NOTE | 2018-10-27 18:39 | PDOC.CTH ---
Cardiology Progress Note - Subjective No new issues. breathing at baseline. No chest pain. - Objective Vital Signs Temp Pulse Ox 10/27/18 16:09 98.6 F 10/27/18 11:42 98.4 F 10/27/18 08:00 95 10/27/18 07:14 99.2 F Admit Weight 155 lb 4.8 oz Weight 155 lb 8 oz 10/26/18 10/27/18 10/28/18 06:59 06:59 06:59 Intake Total 380 30 Output Total 2 Balance 380 28 - Physical Examination General/Neuro: alert & oriented x3, NAD Neck: no JVD present Lungs: CTA, unlabored respirations Heart: other: (Irreg irreg) Abdomen: NT/ND Extremities: + edema B (Trace) - Telemetry Telemetry Rhythm: Afib HR 80's. - Labs Result Diagrams: 10/23/18 04:20 10/27/18 04:58 Troponin/CKMB CK-MB (CK-2) 2.7 ng/mL (0-6.6) 10/18/18 15:59 Troponin I 0.061 ng/mL (< 0.028) H 10/18/18 15:59 - Assessment/Plan 1. Afib RVR, rate controlled. 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 Acute on chronic systolic heart failure. RV faiure. 4. Likely dementia exacerbated by acute illness. Improved. 5. CKD stage 4 6. Severe hypoacusia 7. Hypotension, orthostatic PLAN: - On lasix PO. - Prohibitive to do LHC given his elevated creatinine. - No ACEI due to renal dysfunction. - BP too low for BiDil or BB. - Continue midodrine for orthostatic hypotension.
--- NOTE | 2018-10-27 21:44 | PDOC.PN ---
- Subjective Encounter Start Date: 10/27/18 Encounter Start Time: 13:45 Patient seen and examined for CHF. No CP/SOB. No new complaints. No overnight events - Objective Resuscitation Status - Order Detail: 10/18/18 15:02 Resuscitation Status Routine Resuscitation Status: PRTL: Chem only Discussed with: d/w family at bedside MAR Reviewed: Yes Vital Signs & Weight: Vital Signs (12 hours) Temp Pulse Ox 10/27/18 20:00 96 10/27/18 19:44 97.9 F 10/27/18 16:09 98.6 F 10/27/18 11:42 98.4 F Weight Admit Weight 155 lb 4.8 oz Weight 155 lb 8 oz Most Recent Monitor Data Heart Rate from ECG 81 NIBP 99/62 NIBP BP-Mean 74 Respiration from ECG 12 SpO2 100 I&O: 10/26/18 10/27/18 10/28/18 06:59 06:59 06:59 Intake Total 380 30 620 Output Total 2 Balance 380 28 620 Result Diagrams: 10/23/18 04:20 10/27/18 04:58 Phys Exam - Physical Examination Constitutional: NAD Respiratory: no wheezing, no rhonchi Bibasilar rales Cardiovascular: RRR, no rub Gastrointestinal: soft, non-tender, positive bowel sounds Musculoskeletal: no edema Dx/Plan - Plan DVT proph w/SCDs IMPRESSION: New onset Atrial fibrillation with rapid ventricular response. - rate controlled. Off Cardizem drip. Acute on chronic systolic/diastolic heart failure, ACC stage C. Off Dobutamine s/p Code Green/Syncope due to hypotension - No new episodes h/o Hypertension - Patient hypotensive Dementia. Acute kidney injury on chronic kidney disease, stage 3. Moderate protein-calorie malnutrition. Abnormal LFTs secondary to passive hepatic congestion. Type 2 myocardial infarction. Elevated TSH with normal free T4. (Subclinical hypothyroidism) - Started on low dose Levothyroxine Metabolic acidosis. Swallow dysfunction Dyslipidemia/Physical deconditioning/Chronic hearing loss/Hypomagnesemia - replaced PLAN: Warfarin on hold due to elevated INR Replace Potassium and Magnessium No ACEI/ARB/Aldactone due to renal insufficiency. Cont other meds as below AM labs Accepted at [facility]. DC if ok with Cardiology Laboratory Tests 10/27/18 04:58 Magnesium 1.2 L Review of Systems - Review of Systems Respiratory: negative: Cough, Dry, Shortness of Breath, Hemoptysis, SOB with Excertion, Pleuritic Pain, Sputum, Wheezing Cardiovascular: negative: chest pain, palpitations, orthopnea, paroxysmal nocturnal dyspnea, edema, light headedness, other - Medications/Allergies Allergies/Adverse Reactions: Allergies Allergy/AdvReac Type Severity Reaction Status Date / Time No Known Allergies Allergy Verified 10/16/18 22:24 Medications: Current Medications Acetaminophen (Tylenol) 650 mg PO Q4H PRN PRN Reason: Headache/Fever/Mild Pain (1-3) Aspirin (Ecotrin) 81 mg PO DAILY [facility] Last Admin: 10/27/18 10:11 Dose: 81 mg Atropine Sulfate (Atropine) 0.5 mg IVP ASDIR PRN PRN Reason: Sustained Bradycardia HR < 30s Calcium Carbonate (Tums) 1,000 mg PO Q4H PRN PRN Reason: Heartburn or Indigestion Cyanocobalamin (Vitamin B-12) 1,000 mcg PO DAILY [facility] Last Admin: 10/27/18 10:10 Dose: 1,000 mcg Folic Acid (Folvite) 1 mg PO DAILY [facility] Last Admin: 10/27/18 10:11 Dose: 1 mg Furosemide (Lasix) 40 mg PO 0900,1400 [facility] Last Admin: 10/27/18 15:05 Dose: 40 mg Levothyroxine Sodium (Synthroid) 25 mcg PO 0600 [facility] Last Admin: 10/27/18 06:06 Dose: 25 mcg Midodrine (Proamatine) 5 mg PO TID [facility] Last Admin: 10/27/18 20:14 Dose: 5 mg Miscellaneous Medication (Pharmacy To Dose) 1 each PO .WARFARIN [facility] Ondansetron HCl (Zofran Odt) 4 mg PO Q6H PRN PRN Reason: Nausea/Vomiting Ondansetron HCl (Zofran) 4 mg IVP Q6H PRN PRN Reason: Nausea/Vomiting Potassium Chloride (K-Dur) 20 meq PO BID-[facility] Stop: 10/27/18 23:59 Last Admin: 10/27/18 18:31 Dose: 20 meq Potassium Chloride (K-Dur) 20 meq PO QAM-[facility] Senna/Docusate Sodium (Senokot S) 1 tab PO BID [facility] Last Admin: 10/27/18 20:14 Dose: Not Given Sodium Chloride (Flush - Normal Saline) 10 ml IVF PRN PRN PRN Reason: Saline Flush Last Admin: 10/27/18 10:12 Dose: 10 ml
[2018-10-28 05:20] VITALS: BMI 22.2
[2018-10-28] MEDS: Levothyroxine Sodium 25 MCG TAB PO SCH (06:09)
[2018-10-28 07:14] VITALS: TEMP 97
[2018-10-28] MEDS ORDERED: Potassium Chloride 20 MEQ TAB PO SCH (08:00)
[2018-10-28 08:03] LABS: Anion Gap 12 mmol/L (10-20); BUN (Urea Nitrogen) 21 mg/dL (8.4-25.7); Calc. Creatinine Clearance 33 mL/min (70-130); Calcium 7.8 mg/dL (7.8-10.44); Carbon Dioxide 27 mmol/L (23-31); Chloride 103 mmol/L (98-107); Estimated GFR-MDRD 48; Glucose 107 mg/dL (83-110); Magnesium 1.8 mg/dL (1.6-2.6); Potassium 3.9 mmol/L (3.5-5.1); Sodium 138 mmol/L (136-145)
[2018-10-28 08:06] LABS: INR-International Normal Ratio 2.6; Prothrombin Time 28.2 SEC (12.0-14.7)
[2018-10-28 08:18] LABS: Hemoglobin 10.8 g/dL (14.0-18.0); Mean Corpuscular Hemoglobin 32.4 pg (27.0-31.0); Mean Corpuscular Volume 98.2 fL (78.0-98.0); Red Blood Cell (RBC) Count 3.32 mill/uL (4.70-6.10); White Blood Cell (WBC) Count 4.7 thou/uL (4.8-10.8)
--- NOTE | 2018-10-28 09:44 | PRG ---
DATE OF SERVICE: 10/28/2018 SUBJECTIVE: An 82-year-old gentleman who is doing better, less short of breath, less cough. OBJECTIVE: VITAL SIGNS: Blood pressure 112/73, temperature 97, _ respiratory rate 18. CHEST: Decreased breath sounds. No wheezing. CARDIAC: Normal S1, S2, no gallops. ABDOMEN: No masses. LABORATORY DATA: Creatinine 1.6. White count 4000, H and H 10 and 32, platelet count iswnl IMPRESSION: 1. Advanced age. 2. Congestive heart failure. 3. Pneumonia. 4. Pleural effusion, otherwise disposition per Cardiology. Antibiotic to be discontinued after a total of five days. Job ID: [id number] MTDD
[2018-10-28] MEDS: Folic Acid 1 MG TAB PO SCH (10:45)
[2018-10-28] MEDS: Furosemide 40 MG TAB PO SCH ×2 (10:46→14:47)
[2018-10-28] MEDS: Aspirin 81 mg Enteric Coated Tablet PO SCH (10:46)
[2018-10-28] MEDS: Midodrine HCl 5 MG TAB PO SCH ×2 (10:46→14:48)
[2018-10-28] MEDS: Cyanocobalamin (Vitamin B-12) 1,000 MCG TAB PO SCH (10:46)
[2018-10-28] MEDS: Senokot S 8.6-50 MG TAB PO SCH (10:46)
[2018-10-28 11:37] LABS: Band 1 % (5-11); Lymphocytes 43 % (21-51); MDiff Complete? YES; Macrocytosis SLIGHT = 6-15 cells (100X) (0-5/hpf); Mean Platelet Volume 12.1 fL (7.4-10.4); Monocytes 12 % (0-10); Neutrophil 43 % (42-75); Platelet Count 109 thou/uL (130-400); Platelet Morphology Comment Appears Decreased; Polychromasia SLIGHT = 2-3 cells (100X) (0-2/hpf); RBC Distribution Width 19.6 % (11.5-14.5); Schistocytes SLIGHT = 2-5 cells (100X) (0-1/hpf)
[2018-10-28 13:27] VITALS: BP 113/79
--- NOTE | 2018-10-28 13:59 | PDOC.CTH ---
Cardiology Progress Note - Subjective No new issues. - Objective Vital Signs Temp Pulse Pulse Pulse Pulse BP BP 10/28/18 12:00 81 10/28/18 11:15 78 132 H 92 113/79 128/93 H 10/28/18 07:14 97.0 F L 10/28/18 04:00 97.8 F Pulse Ox 10/28/18 12:00 100 10/28/18 11:15 10/28/18 07:14 10/28/18 04:00 Admit Weight 155 lb 4.8 oz Weight 155 lb 10/27/18 10/28/18 10/29/18 06:59 06:59 06:59 Intake Total 30 680 Output Total 2 Balance 28 680 - Physical Examination General/Neuro: NAD Neck: no JVD present Lungs: unlabored respirations Heart: other: (Irreg irreg) Abdomen: NT/ND Extremities: other: (no edema) - Telemetry Telemetry Rhythm: Afib HR 80's. - Labs Result Diagrams: 10/28/18 07:41 10/28/18 07:41 Troponin/CKMB CK-MB (CK-2) 2.7 ng/mL (0-6.6) 10/18/18 15:59 Troponin I 0.061 ng/mL (< 0.028) H 10/18/18 15:59 - Assessment/Plan 1. Afib RVR, rate controlled. 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 Acute on chronic systolic heart failure. RV failure. 4. Likely dementia exacerbated by acute illness. Improved. 5. CKD stage 4 6. Severe hypoacusia 7. Hypotension, orthostatic PLAN: - On lasix PO. - Prohibitive to do LHC given his elevated creatinine. - No ACEI due to renal dysfunction. - BP too low for BiDil or BB. - Continue midodrine for orthostatic hypotension. - May discharge from hospital. - Follow up in the office in 1 month.
[2018-10-28] MEDS ORDERED: Warfarin Sodium 2 MG TAB PO SCH (17:00)
--- NOTE | 2018-10-29 08:17 | DIS ---
DATE OF ADMISSION: 10/16/2018 DATE OF DISCHARGE: 10/28/2018 DISCHARGE DISPOSITION: [facility] at [facility]. FOLLOWUP: 1. Follow up with Dr. Mandel in 1 week. 2. Follow up with Dr. Marlow in 2 weeks. CODE STATUS: [id number]. DISCHARGE MEDICATIONS: 1. Tylenol as needed. 2. Aspirin 81 mg daily. 3. Lipitor 40 mg at bedtime. 4. Vitamin B12 of 1000 mcg daily. 5. Folic acid 1 mg daily. 6. Lasix 40 mg daily. 7. Synthroid 25 mcg daily. 8. Slow-Mag 64 mg b.i.d. 9. Midodrine 5 mg 3 times a day. 10. Potassium chloride 20 mEq daily. 11. Coumadin 2 mg daily with frequent PT/INR monitoring. 12. Senokot 1 tablet b.i.d. INPATIENT CONSULTANTS: 1. Cardiology, Dr. Marlow. 2. Critical Care, Dr. Kumar. BRIEF HOSPITAL COURSE: The patient is an 82-year-old male with congestive heart failure with ejection fraction 30% in the past, presented to the hospital on October 16, 2018, with altered mentation and generalized weakness. His workup was consistent with atrial fibrillation with rapid ventricular response as well as congestive heart failure exacerbation. Echocardiogram showed ejection fraction of 35% to 40% with mild left ventricular hypertrophy. He was monitored on the telemetry unit. His weight on admission was 155 pounds. However due to low blood pressure, diuresis was difficult. He also required dobutamine drip during this hospital stay. Beta blockers were initially started, however due to persistent hypotension, this was discontinued. Cardiac catheterization was not performed due to chronic kidney disease. He also had 1 episode of syncope probably due to hypotension and a Code Green was called. He was transferred to the higher level of care (intermediate care unit). His heart rate is controlled at this time. He was initially placed on Cardizem drip, which has been discontinued. He has been cleared by consultants for discharge. FINAL DIAGNOSES: 1. Acute on chronic systolic/diastolic heart failure exacerbation requiring dobutamine drip. 2. New onset atrial fibrillation with rapid ventricular response, requiring Cardizem drip. 3. Status post Code Green due to syncope, probably secondary to hypotension. 4. History of hypertension in the past. 5. Dementia. 6. Acute kidney injury on chronic kidney disease stage 3. Creatinine on the day of discharge is 1.6 from 2.34 on admission. 7. Moderate protein-calorie malnutrition. 8. Abnormal LFTs secondary to passive hepatic congestion. Type 2 myocardial infarction. 9. Elevated TSH with normal free T4. He has been started on low-dose levothyroxine. 10. Metabolic acidosis. 11. Swallow dysfunction. 12. Physical deconditioning. 13. Generalized weakness, multifactorial. 14. Hypomagnesemia, replaced. 15. Chronic hearing loss. 16. Dyslipidemia. TIME SPENT WITH PATIENT: Total time coordinating the discharge of this patient was 40 minutes. Job ID: [id number]
== END 2018-10-28 16:45 | DRG 280 ==
LOC: ERS 14:51 → 2NO 18:48 → IMCU/EMU 10-18 12:17
PROVIDERS: ADMIT Internal Medicine; ATTEND Internal Medicine
DX: I48.91 Unspecified atrial fibrillation (principal); J18.9 Pneumonia, unspecified organism; I21.A1 Myocardial infarction type 2; I50.43 Acute on chronic combined systolic (congestive) and diastolic (congestive) heart failure; I13.0 Hypertensive heart and chronic kidney disease with heart failure and stage 1 through stage 4 chronic kidney disease, or unspecified chronic kidney disease; N18.4 Chronic kidney disease, stage 4 (severe); N17.9 Acute kidney failure, unspecified; E87.2 Acidosis; E44.0 Moderate protein-calorie malnutrition; R74.8 Abnormal levels of other serum enzymes; H91.90 Unspecified hearing loss, unspecified ear; I42.0 Dilated cardiomyopathy; F03.90 Unspecified dementia, unspecified severity, without behavioral disturbance, psychotic disturbance, mood disturbance, and anxiety; E83.42 Hypomagnesemia; I95.1 Orthostatic hypotension; Z98.41 Cataract extraction status, right eye; Z79.82 Long term (current) use of aspirin; Z91.19 Patient's noncompliance with other medical treatment and regimen
CPT/HCPCS: 36415; 36416; 70450; 71045; 76705; 80048; 80053; 80076; 82533; 82553; 83735; 83880; 84100; 84439; 84443; 84484; 85014; 85018; 85025; 85049; 85610; 85730; 93005; 93010; 93306; 96365; 96366; J1250; J1650; J1940; J3475; J7050; P9047

== ENCOUNTER 2018-11-30 18:43 | Observation (INO) | payer MEDICARE, MEDICAID ==
[2018-11-30 19:27] LABS: #Lymphocytes 1.3 thou/uL (1.20-3.40); #Monocytes 0.4 thou/uL (0.11-0.59); #Neutrophils 5.7 thou/uL (1.40-6.50); %Basophils 0.5 % (0.0-1.0); %Eosinophils 0.1 % (0.0-10.0); %Monocytes 4.9 % (0.0-10.0); %Neutrophils 77.5 % (42.0-75.0); Hemoglobin 10.2 g/dL (14.0-18.0); Mean Corpuscular HGB CONC 31.3 g/dL (32.0-36.0); Mean Corpuscular Hemoglobin 31.3 pg (27.0-31.0); Mean Platelet Volume 9.7 fL (7.4-10.4); Platelet Count 127 thou/uL (130-400); RBC Distribution Width 18.9 % (11.5-14.5); Red Blood Cell (RBC) Count 3.25 mill/uL (4.70-6.10); White Blood Cell (WBC) Count 7.3 thou/uL (4.8-10.8)
[2018-11-30 19:42] LABS: ALT (SGPT) 13 U/L (8-55); AST (SGOT) 29 U/L (5-34); Albumin 2.7 g/dL (3.4-4.8); Alkaline Phosphatase 72 U/L (40-150); Anion Gap 22 mmol/L (10-20); BUN (Urea Nitrogen) 35 mg/dL (8.4-25.7); Bilirubin, Total 1.5 mg/dL (0.2-1.2); Calc. Creatinine Clearance 0 mL/min (70-130); Calcium 8.9 mg/dL (7.8-10.44); Carbon Dioxide 19 mmol/L (23-31); Chloride 107 mmol/L (98-107); Estimated GFR-MDRD 27; Globulin 3.5 g/dL (2.4-3.5); Glucose 125 mg/dL (83-110); Potassium 4.6 mmol/L (3.5-5.1); Protein, Total 6.2 g/dL (5.8-8.1); Sodium 143 mmol/L (136-145)
[2018-11-30 19:53] LABS: Anisocytosis SLIGHT = 6-15 cells (100X) (0-5/hpf); Burr Cells SLIGHT = 2-5 cells (100X) (0-1/hpf); Hypochromia SLIGHT = 6-15 cells (100X) (0-5/hpf); MDiff Complete? YES; Macrocytosis SLIGHT = 6-15 cells (100X) (0-5/hpf); Pappenheimer Bodies SLIGHT = 1-2 cells (100X) (None Seen); Platelet Morphology Comment Appears Decreased; Poikilocytosis SLIGHT = 6-15 cells (100X) (0-5/hpf); Polychromasia SLIGHT = 2-3 cells (100X) (0-2/hpf); Schistocytes SLIGHT = 2-5 cells (100X) (0-1/hpf); Target Cells SLIGHT = 2-5 cells (100X) (0-1/hpf)
[2018-11-30] MEDS ORDERED: Pantoprazole 40 MG VIAL ONE (20:32)
[2018-11-30 22:19] VITALS: BMI 24.3
[2018-11-30] MEDS ORDERED: Ondansetron PF 4 MG/2 ML Vial IVP PRN ×2 (22:31→22:54)
[2018-11-30] MEDS ORDERED: Sodium Chloride 0.9% 1,000 ML IV SCH (22:31)
[2018-11-30] MEDS ORDERED: Ondansetron ODT 4 MG TAB SL PRN (22:31)
[2018-11-30] MEDS ORDERED: Ondansetron ODT 4 MG TAB PO PRN (22:54)
[2018-11-30] MEDS ORDERED: Acetaminophen 500 MG TAB PO PRN (22:54)
[2018-11-30] MEDS ORDERED: Sodium Chloride 0.9% (PF) 10 ML VIAL FS PRN (23:05)
[2018-11-30] MEDS: Sodium Chloride 0.9% 1,000 ML IV SCH (23:16)
[2018-11-30] MEDS ORDERED: Magnesium Citrate 300 ML BOT PO SCH (23:45)
--- NOTE | 2018-12-01 00:53 | HP ---
PRIMARY CARE PROVIDER: Adonis Mandel MD CHIEF COMPLAINT: Vomiting blood. HISTORY OF PRESENT ILLNESS: This is an 83-year-old male, who presents to [facility] Emergency Department in transfer from [facility] in [place], [place] where patient is a current resident after skilled nursing personnel noted the patient with three episodes of coffee-grounds emesis. Initial hemoglobin performed in the emergency room showed of level of 10.2 similar in levels to prior hemoglobins dating back to 2012. The history is obtained after review of the electronic medical record as well as the emergency room documentation as the patient has severe dementia and unable to provide a coherent history. The patient was recently admitted to [facility] from 10/16/2018 to 10/29/2018 after a CHF exacerbation as well as new onset atrial fibrillation, placed on Eliquis and aspirin. The patient was also noted with multiple medical conditions including dysphagia, physical deconditioning, and advanced dementia. In the emergency room, the patient received IV Protonix 80 mg x1 dose in addition to intravenous normal saline 500 mL. PAST MEDICAL HISTORY: 1. Chronic combined systolic/diastolic congestive heart failure with ejection fraction of 35% to 40%. 2. Atrial fibrillation, on chronic Eliquis. 3. Hypertension. 4. Chronic kidney disease, stage 3 to 4. 5. Advanced dementia. 6. Moderate protein calorie malnutrition. 7. Dysphagia. 8. Physical deconditioning. 9. Chronic hearing loss. 10. Dyslipidemia. PAST SURGICAL HISTORY: Status post inguinal hernia repair. CURRENT MEDICATIONS: 1. Enteric-coated aspirin 81 mg p.o. daily. 2. Eliquis 5 mg p.o. b.i.d. 3. Folic acid 1 mg p.o. daily. 4. Lasix 20 mg p.o. daily. 5. Levothyroxine 50 mcg p.o. daily. 6. Lipitor 40 mg p.o. at bedtime. 7. Magnesium oxide 400 mg p.o. b.i.d. 8. Midodrine 5 mg p.o. t.i.d. 9. Mirtazapine 7.5 mg p.o. at bedtime. 10. Potassium chloride 20 mEq p.o. daily. 11. Senokot 1 tablet p.o. b.i.d. 12. Vitamin B12 1000 mcg p.o. daily. ALLERGIES: NO KNOWN DRUG ALLERGIES. FAMILY HISTORY: No inheritable diseases per review of the electronic medical record. SOCIAL HISTORY: The patient resides at [facility]. Medical power of state's attorney is the patient's granddaughter. No current alcohol, tobacco, or illicit drug use. Needs assistance with all activities of daily living. REVIEW OF SYSTEMS: Unobtainable due to patient's advanced dementia. PHYSICAL EXAMINATION: VITAL SIGNS: On admission, blood pressure 123/80, pulse 107, respiratory rate 18, temperature 96.4 degrees Fahrenheit, and O2 saturation 100% on room air. GENERAL APPEARANCE: This is an 83-year-old male, mumbling, alert, in no acute distress. HEENT: Pupils are equal, round, reactive to light and accommodation. Extraocular muscles are intact. No scleral icterus. No conjunctival injection. Nares patent. OP is clear. NECK: Supple. No cervical adenopathy. No thyromegaly. No carotid bruits. No JVD appreciated. Cervical spine with full active and passive range of motion. No meningeal signs noted. CHEST: Lungs are clear to auscultation bilaterally. CARDIOVASCULAR: S1, S2 without noted murmur, rub, or gallop. ABDOMEN: Flat, soft, nontender, and nondistended. Bowel sounds are positive in all 4 quadrants. There is no hepatosplenomegaly. No abdominal bruits. No rebound or guarding appreciated. EXTREMITIES: Warm and dry with fair turgor. No clubbing, cyanosis, or asymmetric edema appreciated. Generalized atrophy noted. Pulses palpable distally at the dorsalis pedis, posterior tibial, and popliteal arteries bilaterally. Capillary refill less than 2 seconds. NEUROLOGIC: Cranial nerves 2 through 12 are grossly intact. No focal or lateralizing signs appreciated. The patient is not observed ambulatory during this exam. Alert and oriented to name only. PERTINENT LABORATORY AND X-RAY FINDINGS: Sodium 143, potassium 4.6, chloride 107, CO2 of 19, BUN 35, creatinine 2.73, estimated GFR 27, glucose 125, calcium 8.9, total bilirubin 1.5. CBC showed a white blood cell count of 7.3, hemoglobin 10, hematocrit 33, MCV 100, platelet count 127 with 78% neutrophils. Stool Hemoccult positive x1, 11/30/2018. ASSESSMENT AND PLAN: 1. Hematemesis. The patient will be observed on the medical floor. We will continue Protonix 40 mg IV q.12 hours. Continue serial hemoglobin and hematocrit monitoring. Hold aspirin and Eliquis. Antiemetics as clinically indicated. Consider GI consultation if the patient has recurrence of hematemesis. 2. Acute kidney injury on chronic kidney disease stage 3. We will continue normal saline at 50 mL/h. Avoid nephrotoxic agents and limit contrast exposure. Repeat creatinine in the a.m. 3. Chronic atrial fibrillation with variable rate. Resume rate control strategy as blood pressure tolerates. Hold anticoagulation due to hematemesis. 4. Chronic macrocytic anemia. Stable currently. Continue serial hemoglobin and hematocrit monitoring. Hold anticoagulation and aspirin. Repeat CBC in the a.m. 5. Advanced dementia. Continue supportive management. Surrogate medical decision maker is patient's granddaughter. 6. Prophylaxis. SCDs while in bed. Protonix 40 mg IV q.12 hours. CODE STATUS: Do not attempt resuscitation confirmed with the patient's granddaughter and [id number] DNR at [facility]. Surrogate medical decision maker is the patient's granddaughter. Job ID: [id number]
[2018-12-01 05:14] LABS: Band 8 % (5-11); Burr Cells MODERATE= 6-15 cells (100X) (0-1/hpf); Hemoglobin 9.4 g/dL (14.0-18.0); Hypochromia SLIGHT = 6-15 cells (100X) (0-5/hpf); Lymphocytes 11 % (21-51); MDiff Complete? YES; Mean Corpuscular HGB CONC 31.4 g/dL (32.0-36.0); Mean Corpuscular Hemoglobin 31.4 pg (27.0-31.0); Mean Corpuscular Volume 99.9 fL (78.0-98.0); Mean Platelet Volume 12.7 fL (7.4-10.4); Monocytes 6 % (0-10); Neutrophil 75 % (42-75); Platelet Count 115 thou/uL (130-400); Platelet Morphology Comment Appears Decreased; Red Blood Cell (RBC) Count 2.99 mill/uL (4.70-6.10); Target Cells SLIGHT = 2-5 cells (100X) (0-1/hpf); White Blood Cell (WBC) Count 7.6 thou/uL (4.8-10.8)
[2018-12-01 05:22] LABS: Anion Gap 18 mmol/L (10-20); BUN (Urea Nitrogen) 36 mg/dL (8.4-25.7); Calc. Creatinine Clearance 18 mL/min (70-130); Calcium 8.5 mg/dL (7.8-10.44); Carbon Dioxide 20 mmol/L (23-31); Chloride 109 mmol/L (98-107); Estimated GFR-MDRD 27; Glucose 112 mg/dL (83-110); Potassium 4.5 mmol/L (3.5-5.1); Sodium 142 mmol/L (136-145)
[2018-12-01] MEDS: Levothyroxine Sodium 25 MCG TAB PO SCH (05:22)
[2018-12-01] MEDS: Midodrine HCl 5 MG TAB PO SCH ×3 (09:51→20:29)
[2018-12-01] MEDS: Magnesium Chloride 64 MG TAB PO SCH ×2 (09:51→20:28)
[2018-12-01] MEDS: Folic Acid 1 MG TAB PO SCH (09:52)
[2018-12-01] MEDS: Pantoprazole 40 MG VIAL IVP SCH ×2 (09:52→20:26)
[2018-12-01] MEDS: Cyanocobalamin (Vitamin B-12) 1,000 MCG TAB PO SCH (09:52)
[2018-12-01] MEDS: Sodium Chloride 0.9% 1,000 ML IV SCH (14:33)
[2018-12-01 14:59] LABS: Hemoglobin 9.5 g/dL (14.0-18.0)
[2018-12-01 15:22] LABS: Iron 49 ug/dL (65-175); Iron Binding Capacity, Total 138 mcg/dL (261-462)
--- NOTE | 2018-12-01 16:18 | PDOC.PN ---
- Subjective Encounter Start Date: 12/01/18 Encounter Start Time: 13:00 Subjective: Patient examined, no overnight events -: 1 bloody stool today, no emesis today - Objective Resuscitation Status - Order Detail: 11/30/18 22:43 Resuscitation Status Routine Resuscitation Status: DNAR: NO Resuscitation Discussed with: Confirmed with SNF, Granddaughter Vital Signs & Weight: Vital Signs (12 hours) Temp Pulse Resp BP BP Pulse Ox 12/01/18 16:01 76 12 135/84 100 12/01/18 13:45 97.9 F 89 16 114/82 100 12/01/18 12:16 72 12 183/99 H 98 12/01/18 09:00 97.3 F L 96 18 118/76 12/01/18 08:00 12 129/78 12/01/18 04:56 97.3 F L 93 20 129/78 100 Weight Weight 64.41 kg I&O: 11/30/18 12/01/18 12/02/18 06:59 06:59 06:59 Intake Total 550 220 Balance 550 220 Result Diagrams: 12/01/18 14:45 12/01/18 04:42 Phys Exam - Physical Examination HEENT: PERRLA Neck: no nodes Respiratory: clear to auscultation bilateral Cardiovascular: RRR Gastrointestinal: non-tender, positive bowel sounds mild distention Musculoskeletal: no edema, pulses present Neurological: non-focal Lymphatic: no nodes Deviation from normal: Patient with dementia, appears at baseline per records, mumbles, Dx/Plan (1) Hematemesis/vomiting blood Code(s): K92.0 - HEMATEMESIS Status: Acute (2) Hematest positive stools Status: Acute (3) A-fib Code(s): I48.91 - UNSPECIFIED ATRIAL FIBRILLATION Status: Chronic (4) Acute kidney injury Code(s): N17.9 - ACUTE KIDNEY FAILURE, UNSPECIFIED Status: Acute (5) Chronic anticoagulation Code(s): Z79.01 - HALF-WAY (CURRENT) USE OF ANTICOAGULANTS Status: Chronic (6) Dementia Code(s): F03.90 - UNSPECIFIED DEMENTIA WITHOUT BEHAVIORAL DISTURBANCE Status: Chronic Qualifiers: Dementia behavioral disturbance: without behavioral disturbance (7) Anemia Code(s): D64.9 - ANEMIA, UNSPECIFIED Status: Chronic - Plan Serial H&Hs, will continue to hold Eliquis, ASA -: Iron studies ordered, GI consult added * . Review of Systems - Medications/Allergies Allergies/Adverse Reactions: Allergies Allergy/AdvReac Type Severity Reaction Status Date / Time No Known Allergies Allergy Verified 11/30/18 22:17 Medications: Current Medications Acetaminophen (Tylenol) 1,000 mg PO Q6H PRN PRN Reason: Mild Pain (1-3) Cyanocobalamin (Vitamin B-12) 1,000 mcg PO DAILY [facility] Last Admin: 12/01/18 09:52 Dose: 1,000 mcg Folic Acid (Folvite) 1 mg PO DAILY [facility] Last Admin: 12/01/18 09:52 Dose: 1 mg Sodium Chloride (Normal Saline 0.9%) 1,000 mls @ 50 mls/hr IV .Q20H [facility] Last Admin: 12/01/18 14:33 Dose: 1,000 mls Levothyroxine Sodium (Synthroid) 25 mcg PO 0600 [facility] Last Admin: 12/01/18 05:22 Dose: 25 mcg Magnesium Chloride (Slow-Mag) 64 mg PO BID [facility] Last Admin: 12/01/18 09:51 Dose: 64 mg Midodrine (Proamatine) 5 mg PO TID [facility] Last Admin: 12/01/18 14:32 Dose: 5 mg Ondansetron HCl (Zofran Odt) 4 mg PO Q6H PRN PRN Reason: Nausea/Vomiting Ondansetron HCl (Zofran) 4 mg IVP Q6H PRN PRN Reason: Nausea/Vomiting Pantoprazole Sodium (Protonix) 40 mg IVP Q12HR [facility] Last Admin: 12/01/18 09:52 Dose: 40 mg Sodium Chloride (Normal Saline Pf) 10 ml FS PRN PRN PRN Reason: RECONSTITUTION
--- NOTE | 2018-12-02 00:39 | CON ---
DATE OF CONSULTATION: 12/01/2018 REASON FOR CONSULT: Reported coffee-grounds emesis. HISTORY OF PRESENT ILLNESS: Mr. Davis is an 83-year-old demented male who stays at the halfway. He was admitted and transferred from halfway for reported coffee-grounds emesis. Since he has been here, he has had no further coffee-grounds emesis and his hemoglobin remained stable. He has not been eating much though. He was here recently in the hospital with atrial fibrillation with RVR. He did have a heart catheterization secondary to his elevated creatinine and renal insufficiency as well as dementia. He had low blood pressures and required some midodrine. Ultimately when he was discharged, he was sent home with Eliquis 5 mg b.i.d. His granddaughter reports that he had previously been on Coumadin that was discontinued. He has never had any bleeding issues in the past. He has had one bowel today which was brown and he just had another one when I went in to go see him with the nurse and that was brown as well. Presently, he has been stable here in the hospital on some IV Protonix. Although his nurse notes that he would not take some magnesium citrate which was ordered by the internal medicine physician taking care of in the hospital. PAST MEDICAL HISTORY: 1. Chronic heart failure, systolic and diastolic, ejection fraction 35% to 40%. 2. Atrial fibrillation. Apparently, he was on Coumadin in the past, now Eliquis 5 mg b.i.d. 3. Hypertension. 4. Chronic kidney disease, stage 3-4. 5. Advanced dementia. 6. Malnutrition. 7. Dysphagia. 8. Physical deconditioning. 9. Hearing loss. 10. Dyslipidemia. PAST SURGICAL HISTORY: Previous inguinal hernia repairs. MEDICATIONS: At the halfway include; 1. Eliquis 5 b.i.d. 2. Enteric-coated aspirin. 3. Folic acid b.i.d. 4. Lasix 20 mg daily. 5. Levothyroxine. 6. Lipitor. 7. Magnesium oxide. 8. Midodrine. 9. Mirtazapine. 10. Potassium chloride. 11. Senokot. 12. B12. ALLERGIES: NO KNOWN. FAMILY HISTORY: Unable to be obtained from the patient. SOCIAL HISTORY: Unable to be obtained from the patient except for halfway. Daughter is the [id number] and I have talked to her this evening. REVIEW OF SYSTEMS: Unable to be obtained from the patient. PHYSICAL EXAMINATION: GENERAL: Mr. Davis is an 83-year-old, he is resting comfortably in bed. VITAL SIGNS: Temperature 97.9. He has pulled his IV out this afternoon, , blood pressure is 130/84. LUNGS: Clear. He is cachectic. ABDOMEN: Soft, but he strains at times and it is hard to determine if there is rigidity or not. He does not seem to be uncomfortable with palpation of the abdomen, however. Bowel sounds are noted pretty quiescent, but his nurse notes she has heard bowel sounds earlier today. EXTREMITIES: Very cachectic with muscle wasting. LABORATORY STUDIES: White count 7.6 this morning, hemoglobin 9.4, it was 10.2 last night at 1900 hours and 10.9 at 7 a.m. on the 28 of October, a month ago. INR was not checked on admission. Sodium 142, potassium 5.4, BUN and creatinine are 36 and 2.72, very similar to his baseline. Glucose 112, bilirubin 1.5, AST and ALT are 29 and 13, alkaline phosphatase was 72. Iron was 49, TIBC was 138, ferritin was 641. ASSESSMENT: 1. Macrocytic anemia, normal iron stores. This is chronic, likely related to his renal insufficiency. He has iron store studies consistent with anemia of chronic disease. His B12 has not been checked. 2. History of coffee-grounds emesis. No signs of bleeding here with no melena and no emesis. 3. Severe dementia. 4. Severe heart failure requiring midodrine to give his blood pressure up. 5. Chronic anticoagulation, on Eliquis for atrial fibrillation. RECOMMENDATIONS: 1. It may be reasonable to consider discontinuing his Eliquis. He has advanced dementia and renal failure and may have significant risk of bleeding complications from Eliquis. We would defer this to his flight operation coordinator and hospital doctor, however. 2. We would start him on a PPI empirically and we may continue on this. 3. If there are no signs of bleeding, we will not proceed with any endoscopy. If he has began to develop signs of bleeding or drop in hemoglobin, we can reconsider that, but with his severe hypotension last admission and requirements for midodrine on discharge and lack of ability to tolerate beta-blockers, significant heart failure and dementia, he is definitely at some risk of anesthetic complications and sedation complications for elective endoscopies. We will follow along with you. Job ID: [id number]
[2018-12-02] MEDS: Levothyroxine Sodium 25 MCG TAB PO SCH ×2 (05:28→08:43)
[2018-12-02 06:27] LABS: Anion Gap 15 mmol/L (10-20); BUN (Urea Nitrogen) 39 mg/dL (8.4-25.7); Calc. Creatinine Clearance 17 mL/min (70-130); Calcium 8.3 mg/dL (7.8-10.44); Carbon Dioxide 22 mmol/L (23-31); Chloride 110 mmol/L (98-107); Estimated GFR-MDRD 25; Glucose 96 mg/dL (83-110); Potassium 4.4 mmol/L (3.5-5.1); Sodium 143 mmol/L (136-145)
[2018-12-02 06:51] LABS: #Eosinphils 0.1 thou/uL (0.0-0.7); #Lymphocytes 1.5 thou/uL (1.20-3.40); #Monocytes 0.6 thou/uL (0.11-0.59); #Neutrophils 4.9 thou/uL (1.40-6.50); %Eosinophils 1.2 % (0.0-10.0); %Lymphocytes 20.5 % (21.0-51.0); %Monocytes 8.5 % (0.0-10.0); %Neutrophils 69.8 % (42.0-75.0); Band 4 % (5-11); Burr Cells SLIGHT = 2-5 cells (100X) (0-1/hpf); Hypochromia SLIGHT = 6-15 cells (100X) (0-5/hpf); Lymphocytes 10 % (21-51); MDiff Complete? YES; Mean Corpuscular HGB CONC 30.5 g/dL (32.0-36.0); Mean Corpuscular Volume 98.4 fL (78.0-98.0); Mean Platelet Volume 11.6 fL (7.4-10.4); Monocytes 3 % (0-10); Neutrophil 83 % (42-75); Nucleated RBC 1 % (0); Platelet Count 77 thou/uL (130-400); Platelet Morphology Comment Appears Decreased; RBC Distribution Width 18.9 % (11.5-14.5); Target Cells SLIGHT = 2-5 cells (100X) (0-1/hpf); White Blood Cell (WBC) Count 7.1 thou/uL (4.8-10.8)
[2018-12-02 07:11] LABS: Vitamin B12 Greater than 2000 pg/mL (211-911)
[2018-12-02] MEDS: Pantoprazole 40 MG VIAL IVP SCH (08:42)
[2018-12-02] MEDS: Midodrine HCl 5 MG TAB PO SCH ×2 (08:42→15:54)
[2018-12-02] MEDS: Magnesium Chloride 64 MG TAB PO SCH (08:42)
[2018-12-02] MEDS: Folic Acid 1 MG TAB PO SCH (08:43)
[2018-12-02] MEDS: Cyanocobalamin (Vitamin B-12) 1,000 MCG TAB PO SCH (08:43)
--- NOTE | 2018-12-02 09:09 | PDOC.PN ---
- Subjective Encounter Start Date: 12/02/18 Encounter Start Time: 09:07 Mr. Davis was seen today in follow-up of GI bleed while on Eliquis, He has advanced Dementia, and is unable to express his concerns. He appears comfortable. - Objective Resuscitation Status - Order Detail: 11/30/18 22:43 Resuscitation Status Routine Resuscitation Status: DNAR: NO Resuscitation Discussed with: Confirmed with SNF, Granddaughter MAR Reviewed: Yes Vital Signs & Weight: Vital Signs (12 hours) Temp Pulse Resp BP BP Pulse Ox 12/02/18 08:00 98.1 F 77 14 107/74 98 12/02/18 04:00 97.6 F 92 16 122/70 95 12/02/18 03:57 99 12/02/18 00:00 97.5 F L 100 16 116/67 100 Weight Weight 142 lb I&O: 12/01/18 12/02/18 12/03/18 06:59 06:59 06:59 Intake Total 550 2124 Output Total 275 Balance 550 1849 Result Diagrams: 12/02/18 06:06 12/02/18 06:06 Phys Exam - Physical Examination HEENT: PERRLA Respiratory: no wheezing, no rales, no rhonchi, clear to auscultation bilateral Cardiovascular: RRR, no significant murmur, no rub Gastrointestinal: soft, non-tender, no distention, positive bowel sounds Musculoskeletal: pulses present, edema present + non-pitting edema in both lower extremities and chronic venous stasis cadence Dx/Plan (1) Hematemesis/vomiting blood Code(s): K92.0 - HEMATEMESIS Status: Acute (2) A-fib Code(s): I48.91 - UNSPECIFIED ATRIAL FIBRILLATION Status: Chronic (3) Dementia Code(s): F03.90 - UNSPECIFIED DEMENTIA WITHOUT BEHAVIORAL DISTURBANCE Status: Chronic Qualifiers: Dementia behavioral disturbance: without behavioral disturbance - Plan * Hematemesis- will continue Protonix, p.o. and will continue to hold the Anticoagulation. * He is a poor candidate for chronic anticoagulation going forward * I was unable to contact family to discuss this with them, but this can be done by the patient's primary Care Provider * Stable for discharge back to the the [facility]
[2018-12-02 11:37] VITALS: BP 145/89; TEMP 97.5
[2018-12-02] MEDS: Sodium Chloride 0.9% 1,000 ML IV SCH (15:54)
--- NOTE | 2018-12-03 09:26 | DIS ---
DATE OF ADMISSION: 11/30/2018 DATE OF DISCHARGE: 12/02/2018 DISCHARGE DISPOSITION: Back to the care home. DISCHARGE DIAGNOSES: 1. Upper GI bleed. 2. Atrial fibrillation. 3. Hypertension. 4. Chronic kidney disease, stage 3-4. 5. Advanced dementia. 6. Moderate protein calorie malnutrition. 7. Dysphagia. 8. Physical deconditioning. 9. Dyslipidemia. DISCHARGE MEDICATIONS: Please note that the patient has been taken off Eliquis due to the GI bleed as well as advanced dementia, and he has also been taken off aspirin. Please continue: 1. Docusate sodium twice daily. 2. K-Dur 20 mEq p.o. daily. 3. Protonix 40 mg daily. 4. Midodrine 5 mg three times a day. 5. Slow-Mag 64 mg twice daily. 6. Folic acid 1 mg daily. 7. Vitamin B12 1000 mcg p.o. daily. 8. Lipitor 40 mg at bedtime. 9. Tylenol 650 mg q.4. 10. Mirtazapine 7.5 mg p.o. at bedtime. 11. Levothyroxine 50 mcg p.o. daily. 12. Lasix 20 mg daily. CODE STATUS: DNAR. ALLERGIES: NO KNOWN DRUG ALLERGIES. HOSPITAL COURSE: Mr. Davis is a pleasant 83-year-old gentleman who was brought from the care home due to vomiting blood. He had recently been admitted to our facility for a diagnosis of new onset atrial fibrillation. He had been placed on Eliquis and discharged back to the nursing facility where he developed some hematemesis. He was admitted to our facility. GI was consulted and it was recommended that he could be treated conservatively. He was taken off Eliquis and placed on proton pump inhibitor with the Protonix and was stabilized and able to be discharged back to the nursing facility on 12/02/2018, in stable condition. He will be taken off anticoagulation indefinitely due to his risk of further bleed, his advanced dementia. I was unable to reach any family members. The voice mailbox was full and the patient's granddaughter and the other 2 numbers did not go through that were listed in the chart. This can be handled however in the outpatient setting. Job ID: [id number]
--- NOTE | 2018-12-06 11:54 | EKG ---
Test Reason : Blood Pressure : / mmHG Vent. Rate : 121 BPM Atrial Rate : 129 BPM P-R Int : 000 ms QRS Dur : 100 ms QT Int : 360 ms P-R-T Axes : 000 -62 124 degrees QTc Int : 511 ms Atrial fibrillation with rapid ventricular response Left axis deviation Possible Anterior infarct , age undetermined Abnormal ECG Confirmed by SENTHIL PEÑA, MOOSE Owusu ([id number]), order editor RAMESH ALBRECHT ([id number]) on 12/06/2018 11:54:06 AM Referred By: Confirmed By:MOOSE NDIAYE MD
== END 2018-12-02 15:45 ==
LOC: ERS 18:43 → SURG A 21:16
PROVIDERS: ADMIT Family Medicine; ATTEND Family Medicine
DX: K92.0 Hematemesis (principal); I13.0 Hypertensive heart and chronic kidney disease with heart failure and stage 1 through stage 4 chronic kidney disease, or unspecified chronic kidney disease; N18.3 Chronic kidney disease, stage 3 (moderate); I50.42 Chronic combined systolic (congestive) and diastolic (congestive) heart failure; N17.9 Acute kidney failure, unspecified; D63.1 Anemia in chronic kidney disease; F03.90 Unspecified dementia, unspecified severity, without behavioral disturbance, psychotic disturbance, mood disturbance, and anxiety; E78.5 Hyperlipidemia, unspecified; H91.90 Unspecified hearing loss, unspecified ear; I48.2 Chronic atrial fibrillation; R19.5 Other fecal abnormalities; E44.0 Moderate protein-calorie malnutrition; Z68.24 Body mass index [BMI] 24.0-24.9, adult; Z66 Do not resuscitate; Z79.01 Long term (current) use of anticoagulants; Z79.82 Long term (current) use of aspirin; Z79.899 Other long term (current) drug therapy; Z98.890 Other specified postprocedural states
CPT/HCPCS: 51701; 80048 ×2; 80053; 82274; 82607; 82728; 82746; 83540; 83550; 85007; 85014; 85018; 85025 ×2; 85027; 86850; 86900; 86901; 93005; 96361 ×3; 96376 ×2; G0378 ×2; 36415; 96374; C9113